=== PATIENT | female | born 1970 | race Caucasian/White ===

== ENCOUNTER 2018-01-14 18:24 | Inpatient (IN) | payer OTHER ==
[~2018-01-14] VITALS: Ht 172.7 cm; Wt 71.6 kg
[~2018-01-14 18:24] MED LIST: DIPHENHYDRAMINE50 MG PO; GABAPENTIN100 MG PO; HYDROCHLOROTHIA25 MG PO; IBUPROFEN600 MG PO; NEURONTIN400 MG PO; NORCO 5-325 TA1 EACH PO; ONE DAILY1 EAC1 PO; PENICILLIN V P500 MG PO; POTASSIUM CHLO20 ME1 PO; TRAMADOL HCL50 MG PO; TYLENOL325 MG PO; WELLBUTRIN XL150 MG PO; ZITHROMAX500 MG PO
[2018-01-14] MEDS ORDERED: IBUPROFEN200 MG PO (19:37)
[2018-01-14] MEDS ORDERED: PHARBETOL325 MG PO (19:38)
--- NOTE | 2018-01-15 00:36 | NUR ---
PT TO CCU AT 2205. AWAKE ALERT SITTIN UP ON STRETCHER. ABLE TO PIVOT FROM STRETCHER TO BED. HAS FREQ HARSH NONPRODUCTIVE COUGH. C/O R CHEST PAIN AND WAS GIVEN 5MG OXYCODONE. PAIN IMPROVED AND WAS ABLE TO SLEEP A LITTLE. TEMP NOW 100.9 AND GIVEN 500MG TYLENOL PO. TAKING PO WATER WELL. HAS NOT HAD BM FOR A WEEK, HAS NOT BEEN EATING WELL DUE TO ILLNESS. WILL LET MD KNOW IN AM.
--- NOTE | 2018-01-15 02:32 | NUR ---
SLEEPING OFF AND ON. WILL HAVE INC COUGH WHEN AWAKE. MEDS GIVEN.
--- NOTE | 2018-01-15 04:09 | NUR ---
PT UP TO BSC WITHOUT CALLING STAFF. REMINDED TO CALL. VOIDED CLEAR YEL URINE AND HAD BEEN UP BEFORE ON OWN WHEN STAFF WAS AWAY FROM DESK. IS NOW COUGHING, AND SOB. BREATH TONES DIM ON T 2/3 TO 3/4 UP, CRACKLE 1/2UP ON LT. FEELING SOB, HAD TO TAKE 02 OFF TO BLOW NOSE AND DESAT TO 84%. RT CALLED TO EVAL AND GIVE NEB. C/O R CHEST PAIN RETURNING, GIVEN 5MG OXYCODONE PO.
--- NOTE | 2018-01-15 06:30 | NUR ---
SLEEPING WELL AT THIS TIME.
--- NOTE | 2018-01-15 06:34 | NUR ---
ADDENDUM REMAINS TACHYPNEAC EVEN WHEN ASLEEP.
--- NOTE | 2018-01-15 06:58 | NUR ---
DR WONG GIVEN UPDATE ON RESP RATE. WILL DEC FLUIDS AND RT INFORMED THAT MAY TRY VAPOTHERM
--- NOTE | 2018-01-15 09:22 | NUR ---
ASSESSMENT COMPLETED, PT C/O OF RIGHT RIB DISCOMFORT THAT TRAVELS TO HER BACK. MEDICATED WITH OXYCODONE 5MG PO. PT DRINKING WATER WITHOUT PROBLEMS. VITAL SIGNS TAKEN WITH ORAL TEMP 101.6, DR. WONG NOTIFIED AND BLOOD CULTURES X2 SITES ORDERED. PT RESTING WITH HOB ELEVATED. R.T. IN AND VAPOTHERM IN PLACE AND ADJUSTED TO 35L AND 40% FI02. RESP 27 AND SATS 97%. PT EATING CLEAR LIQ DIET.
--- NOTE | 2018-01-15 10:30 | NUR ---
DR. WONG IN TO ASSESS PT. TEMP ORAL 102.8, MEDICATED WITH TYLENOL 500 MG PO. PT DRINKING WATER AND ATE 95% OF CLEAR LIQ BREAKFAST.
--- NOTE | 2018-01-15 11:45 | NUR ---
AT 1130 PATIENT WAS COMPLAINING OF FEELING TOO HOT. TEMPERATURE IN THE ROOM TURNED DOWN. ALSO, PATIENT HAS AN ORAL TEMPERATURE OF 98.9
--- NOTE | 2018-01-15 12:55 | NUR ---
PT FAMILY MEMBER BY, WAS WANTING TO CHECK ON PT. YASHIRA ROJO UPDATED HIM ON PT'S CONDITION, AND LET HIM KNOW THAT SHE HAS PNEU AND HAS TESTED POSITIVE FOR FLU B. BABY IN FAMILY, YASHIRA ROJO CAUTIONED TO BE VERY CAREFUL-USING FULL PRECAUTIONS. BRO DECIDED TO CALL INSTEAD. VISITED WITH HIM FOR A MOMENT, HE EXPRESSED CONCERN-THEIR MOTHER JUST LAST WEEK. WILL CONTINUE TO FOLLOW NEEDED
--- NOTE | 2018-01-15 13:03 | NUR ---
PT SLEEPING BUT AWAKENS TO VOICE, VITAL SIGNS TAKEN AND ASSESSMENT COMPLETED. PERSONNEL IN TO TALK TO PT ABOUT INSURANCE. PT UP TO BSC WITH ASSIST VOIDED 135 MLS YELLOW URINE, RETURNED TO BED WITH ASSIST. SAT DECREASED TO LOW 80'S WHEN UP, NOW 98% ON VAPOTHERM AT 35L AND 40% FI02. RESTING WITH HOB ELEVATED.
--- NOTE | 2018-01-15 14:24 | NUR ---
I/O'S COMPLETED. PT SLEEPING WITH HOB ELEVATED, SATS 98% ON VAPOTHERM 35L AND 40% FI02.
--- NOTE | 2018-01-15 16:14 | EKG ---
[facility] [address] [place], [place] [address] Signed Sinus tachycardia Possible Left atrial enlargement Incomplete right bundle branch block Borderline ECG No previous ECGs available Confirmed by TOMER WONG MD ([id number]) on 01/15/2018 4:14:33 PM Electronically Signed By: TOMER WONG MD 01/15/18 1614 PATIENT NAME: AUGUSTO AVILES Electrocardiogram DATE OF : 70 PHYSICIAN: TOMER WONG MD REPORT #: [id number] REPORT IS CONFIDENTIAL AND NOT TO BE RELEASED WITHOUT AUTHORIZATION
--- NOTE | 2018-01-15 16:44 | NUR ---
VITAL SIGN COMPLETED. TEMP 102.5 MEDICATED WITH TYLENOL 500 MG PO.
--- NOTE | 2018-01-15 18:01 | NUR ---
PT COUGHING AND MEDICATED WITH OXYCODONE 5MG PO.
--- NOTE | 2018-01-15 18:22 | NUR ---
PT COUGHING AND HAS A HIGH PITCHED WHEEZE. R.T. NOTIFIED AND HERE NOW TO GIVE SUHAIL PETERSON.
--- NOTE | 2018-01-15 18:52 | NUR ---
PT RESPONDED WELL TO DUO NEB. NOTIFIED AND ORDER RECEIVED FOR DUO NEB QID AND Q2 HRS PRN.
--- NOTE | 2018-01-15 19:30 | NUR ---
PT SHIFT REPORT RECEIVED FROM DAY SHIFT RN. PT IS RESTING IN BED AT THIS TIME. PT IS ON VAPOTHERM AT 35L AND 40% FIO2. PT IS TOLERATING THIS WELL AT THIS TIME. WILL CONTINUE TO CLOSELY MONITOR. PT CALLS APPROPRIATELY.
--- NOTE | 2018-01-15 20:45 | NUR ---
PT SHIFT ASSESSMENT COMPLETED. PT IS RESTING IN BED AT THIS TIME. THIS RN AND RT IN PT OOM TO DO NIGHTLY CARES. PT REQUESTING NEB TREATMENT. SHE STATES "I FEEL LIKE I CAN BREATH MUCH BETTER WHEN I GET THEM". PT BREATH SOUNDS ARE VERY DIMINISHED ON THE RIGHT SIDE. RT WORKED WITH PATIENT ON THE INSENTIVE SPIROMETER AND CORNET. PT STATES "I FEEL MUCH BETTERR THIS EVENING THE I DID THE PREVIOUS DAY". FRESH WATER AT THE BEDSIDE. PT DENIES ANY OTHER NEEDS AT THIS TIME. WILL CONTINUE TO CLOSELY MONITOR.
--- NOTE | 2018-01-15 23:15 | NUR ---
PT CALLED STATING PAIN WAS 8/10. GAVE PRN PAIN MEDICATION. PT UINATING WITH NO ISSUES.
--- NOTE | 2018-01-15 23:30 | NUR ---
PT SHIFT ASSESSMENT DONE. PT BREATH SOUNDS REMAIN DIMINISHED ON THE RIGHT SIDE. PT DENIES NEED FOR A NEB TREATMENT AT THIS TIME. WILL CONTINUE TO CLOSELY MONITOR.
--- NOTE | 2018-01-16 01:13 | NUR ---
PT RESTING IN BED. HEARD PT COUGHING. PT REQUESTING TYLENOL AND PSEUDAPHED TO HELP HEADACHE. PT DENIES NEEDING NEB AT THIS TIME. FRESH WATER A BEDSIDE. WILL CONTINUE TO CLSOELY MONITOR.
--- NOTE | 2018-01-16 01:26 | NUR ---
CALLED MD TO UPDATE PT CONTINUES TO HAVE ELEVATED TEMPS. NO NEW ORDERS AT THIS TIME. TYLENOL BRINGS TEMPERATURE DOWN TO 99.9. WILL CONTINUE WITH TYLENOL AT THIS TIME. IF TYLENOL DOES NOT IMPROVE TEMP CALL MD TO UPDATE.
--- NOTE | 2018-01-16 03:55 | NUR ---
PT CALLED TO ASK IF VAPOTHERM CAN BE REMOVED FOR A WHILE AND SHE CAN WEAR NASAL CANNULA INSTEAD. SHE WANTS A BREAK FROM THE HIGH PRESSURE. SPOKE WITH RT. UPDATED PATIENT IT IS RECOMMENED SHE WEAR THE VAPOTHERM, BUT IF SHE NEEDS A BREAK SHE CAN WEAR THE NASAL CANNULA FOR AWHILE. PT PLACED ON 4L NC. WILL CLOSELY MONITOR PT RR AND SPO2. PT DENIES WANTING A NEB TREATMENT AT THIS TIME. WILL CONTINUE TO CLOSELY MONITOR.
--- NOTE | 2018-01-16 05:18 | NUR ---
IN TO SEE PATIENT TO CHECK TEMPERATURE AND CHECK ON PATIENT AFTER BEING ON NASAL CANULA. PT IS TOELRATING NASAL CANNULA WELL AT THIS TIME. PT IS COUGHING A LOT AFTER AMBULATION. PT IS REQUESTING A NEB TO SEE IF THAT WILL HELP. CALLED RT. WILL CONTINUE TO CLOSELY MONITOR.
--- NOTE | 2018-01-16 08:24 | NUR ---
PT SITTING UP IN BED REQUESTS PAIN MEDICATION, STATES LEVEL OF PAIN IS A 8.5/10 WITH GOAL BEING 5/10. PT ON 4 L OXYGEN AT 100% ALTHOUGH MOVEMENT OF ANY KIND WILL DROP HER SATS LOW 81%. PAIN MEDICATION ADMINISTERED ORDERED. ORAL CARE SUPPLIES REQUESTED. C/O NONE AT THIS TIME. CALL LIGHT PLACED WITHIN REACH.
--- NOTE | 2018-01-16 09:14 | NUR ---
PT SITTING UP IN BED, CHEERFUL AND TALKATIVE TO THIS NURSE WHILE EATING BREAKFAST. RESPIRATORY THERAPIST PLACED PT ON 30L @ 45% WITH VASOTHERM. PT O2 @ 85% WHILE EATING WITH NO NOTICABLE DIFFICULTY. NO C/O AT THIS TIME. PT CALL LIGHT WITHIN REACH.
--- NOTE | 2018-01-16 10:31 | NUR ---
MED REC COMPLETE, PATIENT TAKES NO HOME MEDICATION BEDSIDES OVER THE COUNTER ACETAMINOPHEN OR IBUPROFEN FOR PAIN OR FEVER.
--- NOTE | 2018-01-16 10:43 | NUR ---
IN PT ROOM WITH PHYSCIAN DR. WONG, PT TEARFUL AND RESTLESS STATING SHE HAD A SUDDEN ONSET OF A HEADACHE. DR. WONG ASSESSED HER EMOTIONAL STATUS, PT STATES SHE IS FINE, JUST "SUDDENLY FEELING A HEACACHE AND HOT". TEMP TAKEN, 102.7, ADMINISTERED TYLENOL PER ORDERS. PT REQUESTS MORE ICE WATER. DR. WONG DECREASED VAPOTHERAM TO 30L @ 30%. NO C/O AT THIS TIME. CALL LIGHT WITHIN REACH.
--- NOTE | 2018-01-16 12:41 | NUR ---
PT AWAKE AND ALERT X4. SITTING UP IN BED WATCHING TV. PT REQUESTED LUNCH, GIVEN A MENUE AND EDUCATED ON HOW TO ORDER FOOD FOR HERSELF. IV SITES INTACT, NO REDNESS OR SWELLING NOTED, PT DENIES PAIN WITH FLUSH. PT DENIES NAUSEA, AND SOB. PT PAIN IS JOB AT THIS TIME.
--- NOTE | 2018-01-16 13:45 | NUR ---
CALLED TO UPDATE ON PT STATUS OF FEVER OF 102.0 AND LOW BP OF 100/54. ORDER GIVEN FOR ONE TIME DOSE 400 MG IBUPROFEN, RESTART IV FLUIDS, AND BLOOD CULTURES TO BE DRAWN.
--- NOTE | 2018-01-16 14:14 | NUR ---
LAB IN ROOM TO DRAW BLOOD CULTURES AT THIS TIME.
--- NOTE | 2018-01-16 14:44 | NUR ---
PT SITTING ON SIDE OF BED, O2 CANDULA IN PLACE. PT IS TRYING TO BLOW HER NOSE, AND A FEW TEARS RUN DOWN HER FACE. ON TOP OF BEING SO VERY SICK, SHE TALKS OF HOW SHE JUST LOST HER MOTHER LAST WEEK. DEBRIEFED, AND OFFERED PRAYER, PT DID ACCEPT. SHE THANKED ME FOR COMING, WILL CONTINUE TO FOLLOW NEEDED
--- NOTE | 2018-01-16 15:00 | NUR ---
PT RESTING IN BED, STATES "I'M HOT AND SWEATING" TURNED ROOM TEMP TO 70 DEGREES. PT ALERT AND ORIENTED X4. PT STATES SHE IS TIRED AND APPEARS FATIGUED. PT STATES SHE HAS DECIDED NOT TO TAKE A SHOWER TODAY DUE TO LACK OF ENERGY. IV SITES INTACT, FLUIDS/FLUSHES INFUSE EASILY, PT DENIES PAIN AT EITHER SITE. PT IS INDEPENDENT TO BEDSIDE COMMODE TO VOID WITHOUT DIFFICULTY. PT VOIDING QS AMOUNTS OF URINE, EMPTIED 1700ML YOLA COLORED URINE. GOOD PO INTAKE OF FLUIDS. PT DIAPHORETIC AT THIS TIME. NO COMPLAINTS OF NAUSEA, SOB, PAIN AT THIS TIME. CALL LIGHT WITHIN REACH.
--- NOTE | 2018-01-16 15:20 | NUR ---
PT OFF OF VAPOTHERM AND ONTO 4L NC O2 PER HER REQUEST.
--- NOTE | 2018-01-16 16:35 | NUR ---
PT RESTING IN BED, ASSISTED PT TO CHAIR. ASSISTED PT WITH PARTIAL BATH. LINEN CHANGE, GOWN CHANGE. ASSESSMENT COMPLETED, BP: 100/57, HR: 85, O2: 91 RA, PATIENT THEN PLACED BACK ON NASAL CANNUAL 4L. RR:20, TEMP: 99.2. PT STILL ALERT AND ORIENTED. STATES "I FEEL BETTER, THANKS FOR GETTING ME UP OUT OF BED." DENIES C/O AT THIS TIME. CALL LIGHT WITHIN REACH.
--- NOTE | 2018-01-16 17:10 | NUR ---
FRIEND IN AT THE BEDSIDE TO KANDY WANG.
--- NOTE | 2018-01-16 18:22 | NUR ---
PT BACK IN BED, FRIEND SITTING NEXT TO HER VISITING. ATE 80% OF HER DINNER. DENIES C/O NAUSEA AND SOB. DENIES ANY NEEDS AT THIS TIME.
--- NOTE | 2018-01-16 18:48 | NUR ---
PT HAD UNEVENTFUL SHIFT. PO OXYCODONE GIVEN X3 FOR PAIN IN CHEST WITH BREATHING. PT HAD FEVERS AROUND NOON, GIVEN PO TYLENOL THEN PO MOTRIN. BLOOD CULTURES DRAWN PER . PT ALERT AND ORIENTED X4 ALL SHIFT. PT DENIES NAUSEA ALL SHIFT. PT REQUIRES O2 VIA NASAL CANULA OR VAPOTHERM. PT REFUSED SHOWER TODAY, GIVEN PARTIAL BATH WITH WARM SOAPY WASHCLOTHS, LINENS AND GOWN CHANGED. PT JOB PO INTAKE OF FOOD AND FLUIDS WELL. URINE OUTPUT IS GREATER THAN QS. PT COOPERATIVE.
--- NOTE | 2018-01-16 19:10 | NUR ---
CALLED TO UPDATE ON PT STATUS OF BP 90'S/60'S. PT PRODUCING GREATER THAN QS URINE AT THIS TIME. NO FURTHER ORDERS, CONTINUE TO MONITOR.
--- NOTE | 2018-01-16 20:00 | NUR ---
SHIFT REPORT RECEIVED FROM YASHIRA FERNÁNDEZ. ASSESSMENT COMPLETED. PT IS ALERT/ORIENTED, STATES THAT PAIN HAS IMPROVED TO 5/10 SINCE LAST DOSE OF OXYCODONE, STATES PAIN IS TOLERABLE. LUNGS HAVE CRACKLES IN RIGHT UPPER AND LEFT LOWER LOBES, R.T. IN TO GIVE BREATHING TREATMENT AND PERFORM CPT. PT STATES SHE DOES FEEL SLIGHLY SOB, 4L O2 VIA NC IN PLACE, SPO2:99%. HR REGULAR. BOWEL TONES ACTIVE, DENIES NAUSEA. SKIN GROSSLY INTACT. IV IN LEFT HAND STARTED TO FEEL PAINFUL, DID NOT FLUSH EASILY, D/C'D WITH CATHETER TIP INTACT, PT TOLERATED WELL. 20G IV STARTED IN RIGHT FOREARM/WRIST AREA, IVF INFUSING WNL. PT HAS BEEN GETTING UP TO BSC INDEPENDENTLY TO VOID, 250ML EMPTIED. PT DENIES FURTHER REQUESTS AT THIS TIME, WILL CONTINUE TO MONITOR.
--- NOTE | 2018-01-16 21:53 | NUR ---
PT CALLED AND REQUESTED TO BE PLACED BACK ON VAPOTHERM. R.T. CALLED AND PLACED ON 12L AT 30%. PT ALSO REPORTS 04/22 HEADACHE AND PLEURITIC PAIN, PRN TYLENOL AND PSEUDOEPHEDRINE GIVEN. FRESH ICE WATER PROVIDED. PT DENIES FURTHER REQUESTS AT THIS TIME.
--- NOTE | 2018-01-16 22:38 | NUR ---
PT COMPLAINING OF 8/10 PAIN IN SIDE AND FOUND TO HAVE TEMP OF 100.6, PRN MOTRIN ADMINISTERED AND COOL WASH CLOTH PROVIDED. PT'S SATS WERE STAYING AT 87-89% SO I INCREASED VAPOTHERM TO 15L, SATS NOW 90-91%, WILL CONTINUE TO MONITOR.
--- NOTE | 2018-01-16 22:58 | NUR ---
PT'S SPO2 REMAINS AT 88%, INCREASED TO 18L BUT SATS DID NO CHANGE. INCREASED TO 20L, SPO2:90%. WILL CONTINUE TO MONITOR.
--- NOTE | 2018-01-17 00:04 | NUR ---
ASSESSMENT COMPLETED. RE-CHECKED TEMP: 99.0 ORALLY. REPORTS 8/10 PAIN IN RIGHT RIBS, PRN OXYCODONE ADMINISTERED. LUNGS COARSE TRHOUGHOUT, VAPOTHERM REMAINS AT 20L/30%, SPO2:91%. HR REGULAR. DENIES NAUSEA. IVF INFUSING WNL. PT DENIES FURTHER REQUESTS AT THIS TIME. WILL CONTINUE TO MONITOR.
--- NOTE | 2018-01-17 00:45 | NUR ---
VAPOTHERM SETTINGS ADJUSTED TO 25L @40%, SPO2 WAS 85-88%. SATURATIONS NOW IN MID 95-98%. WILL CONTINUE TO MONITOR.
--- NOTE | 2018-01-17 02:09 | NUR ---
CHECKED IN ON PT WHO APPEARS TO BE SLEEPING. RR:20 SPO2:99%, VAPOTHERM SETTINGS UNCHANGED AT 25L @40%, RESPIRATIONS EVEN AND UNLABORED. WILL ALLOW FOR REST AND CONTINUE TO MONITOR.
--- NOTE | 2018-01-17 03:03 | NUR ---
IN TO START VANCO INFUSION, PT SLEEPING, NO APPARENT DISTRESS. RESPIRATIONS EVEN AND UNLABORED, RR:20, SPO2:95%, VAPOTHERM SETTINGS UNCHANGED. WILL ALLOW FOR REST AND CONTINUE TO MONITOR.
--- NOTE | 2018-01-17 03:59 | NUR ---
ASSESSMENT COMPLETED, PT RESTING WITH EYES CLOSED, WOKE WHILE I WAS IN ROOM. DENIES PAIN AND NAUSEA. LUNGS REMAINS COARSE WITH SOME CRACKLES NOTED, VAPOTHEM SETTINGS UNCHANGED AT 25L @ 40%. HR REGULAR. PT CONTINUES TO GET UP TO BSC INDEPENDENTLY, 450ML URINE EMPTIED. IVF INFUSING WNL. PT DENIES REQUESTS AT THIS TIME, WILL CONTINUE TO MONITOR.
--- NOTE | 2018-01-17 05:48 | NUR ---
CHECKED IN ON PT WHO HAD JUST FINISHED USING BSC. PT REPORTS 8/10 PLEURITIC PAIN, 5MG PO OXYCODONE GIVEN. PT DENIES FURTHER REQUESTS, WILL CONTINUE TO MONITOR.
--- NOTE | 2018-01-17 06:27 | NUR ---
PT CALLED AND REQUESTED A BREAK FROM THE VAPOTHERM, PLACED HE BACK ON 4L VIA NC. SPOS:94%. PT ALSO REQUESTED BREATHING TREATMENT, R.T. CALLED.
--- NOTE | 2018-01-17 06:28 | NUR ---
PT CALLED AND REQUESTED A BREAK FROM THE VAPOTHERM, PLACED HER BACK ON 4L VIA NC. SPO2:94%. PT ALSO REQUESTED BREATHING TREATMENT, R.T. CALLED AND IS IN ROOM AT THIS TIME. PT DENIES FURTHER REQUESTS.
--- NOTE | 2018-01-17 07:45 | NUR ---
PT ALERT AND ORIENTED X4. SITTING UP IN BED EATING BREAKFAST, ANSWERING QUESTIONS WITH EASE. VITAL SIGNS WNL AT THIS TIME. PT STATES SHE SLEPT WELL DURING THE NIGHT. PT IS COUGHING OCCASSIONALY BUT DENIES SOB, NAUSEA, AND DISCOMFORT AT THIS TIME. IV SITES INTACT, FLUIDS INFUSING EASILY, PATIENT DENIES PAIN WITH FLUID INFUSION. PT DENIES ANY NEEDS AT THIS TIME. CALL LIGHT IS WITHIN REACH.
--- NOTE | 2018-01-17 10:04 | NUR ---
PT BREATHING SHALLOW AND TACHYPNEIC. STATES SHE IS IN PAIN. TEMPERATURE @ 100.6. ADMINISTERED OXYCODONE AND TYLENOL PER ORDERS. WILL CONTINUE TO MONITOR CLOSELY.
--- NOTE | 2018-01-17 10:39 | NUR ---
CHECKED IN ON PT. PT SITTING UP IN BED, BREATHING HAS SLOWED DOWN. RR NOW BETWEEN 26-30. PT STATES, "I THINK THE MEDICINE IS JUST NOW STARTING TO KICK IN". DENIES NEEDS AT THIS TIME. WILL CONTINUE TO MONITOR CLOSELY. CALL LIGHT WITHIN REACH.
--- NOTE | 2018-01-17 11:16 | NUR ---
PT SOB, COUGHING & CRYING, STATING "i HURT ALL OVER AND IM TRYING TO BREATH". BREATHING IS TACHYPNEIC AND SHALLOW. O2 SAT @ 82%, INCREASED OXYGEN TO 5L. TEMP INCREASE 100.3 RT CALLED, AND BEGAN NEB TREATMENT.
--- NOTE | 2018-01-17 11:31 | NUR ---
PT REQUESTED NO VISITS AT THIS TIME. WILL CHECK BACK AGAIN-GOD BLESS
--- NOTE | 2018-01-17 13:30 | NUR ---
PT ALERT AND ORIENTED X4. PT AMBULATED TO BATHROOM FOR SHOWER WITH STANDBY ASSIST ON 3L O2. PT AMBULATED BACK TO ROOM WITH STANDBY ASSIST ON 3L O2. PT STATES "I FEEL SO MUCH BETTER NOW". PT TO CHAIR O2 ON 4L SPO2 @ 92%, ALL VITALS WNL. IV SITES INTACT, BOTH SITES FLUSHED EASILY WITH 10ML NS, PT DENIES ANY PAIN. FLUIDS RESTARTED IN RA. PT APPEAR IN HIGH SPIRITS, EATING LUNCH. DENIES SOB, PAIN, NAUSEA, AND DISCOMFORT AT THIS TIME. CALL LIGHT IS PLACED WITHIN REACH.
--- NOTE | 2018-01-17 15:15 | NUR ---
PT SISTER AURORA CALLED, TRANSFERED CALL INTO PT ROOM. PT HAD SHORT CONVERSATION WITH SISTER THEN HUNG UP PHONE. AURORA CALLED BACK, REQUESTING TO SPEAK WITH PT'S NURSE. THIS NURSE ASKED PT IF SHE WANTED HER SISTER AURORA TO KNOW HER INFORMATION, PT STATES "SHE'S DRUNK, I DON'T WANT TO TALK TO HER, DON'T TELL HER ANYTHING". AURORA ON PHONE SLURRING WORDS, INSISTANT ON INFORMING THIS NURSE "YOU NEED TO KNOW HER HISTORY". QUICKLY AND POLITELY ENDED CONVERSATION WITH AURORA PT HAS NOT GIVEN CONSENT.
--- NOTE | 2018-01-17 15:35 | NUR ---
PT AWAKE AND ALERT X4, SITTING UP IN BED WATCHING TV. PT ABLE TO JOB 100% OF LUNCH. PT C/O 8/10 RIB PAIN, GIVEN 7.5 MG PO OXYCODONE. PT DENIES NAUSEA AND SOB AT THIS TIME. O2 VIA NASAL CANULA TITRATED DOWN TO 3L FROM 4L, PT O2 SATS ARE 98% AT THIS TIME. VITALS WNL AT THIS TIME.
--- NOTE | 2018-01-17 17:58 | NUR ---
ALL PT ASSESSMENTS REVIEWED BY THIS RN. WORKING WITH STUDENT NURSE GENNARO.
--- NOTE | 2018-01-17 18:11 | NUR ---
PT REQUESTED WATER, PO INTAKE HAS BEEN GOOD. PT GIVEN MORE WATER. PT DENIES NAUSEA, SOB AND PAIN AT THIS TIME. PT SITTING UP IN BED ALERT AND ORIENTED X4, STATES "I FEEL BETTER". PT VITALS WNL AT THIS TIME. PT ON 3L VIA NC.
--- NOTE | 2018-01-17 19:41 | NUR ---
SHIFT REPORT RECEIVED FROM PRADEEP AC AND GENNARO DAS. PT IS CURRENTLY SLEEPING, NO APPARENT DISTRESS. RR:27, SPO2: 97%, 3L O2 VIA NC IN PLACE. IVF INFUSING WNL. WILL ALLOW FOR REST AND CONTINUE TO MONITOR.
--- NOTE | 2018-01-17 20:27 | NUR ---
ASSESSMENT COMPLETED. PT IS ALERT/ORIENTED, REPORTS 7/10 PAIN IN RIBS, 7.5MG PO OXYCODONE ADMINISTERED. LUNGS SOUND DIM AND CLEAR, 3L O2 VIA NC IN PLACE. HR REGULAR. PT AT 75% OF DINNER, TOLERATED WELL, DENIES NAUSEA. SKIN INTACT. IV PATENT, IVF INFUSING WNL. BSC EMPTIED OF 350ML OF YOLA COLORED URINE. PT DENIES FURTHER REQUESTS AT THIS TIME, WILL CONTINUE TO MONITOR.
--- NOTE | 2018-01-17 21:20 | NUR ---
CHECKED IN ON PT WHO HAD [place] [facility] [place] EMPTI[place]. FRESH ICE WATER PROVIDED. NEW IV TUBING PLACED. PT'S TEMP: 98.4 ORALLY. PT STATES SHE IS GOING TO TRY TO SLEEP NOW, WILL CONTINUE TO MONITOR.
--- NOTE | 2018-01-17 21:47 | NUR ---
TITRATED OXYGEN TO 4L FROM 3L, SPO2 WAS STAYING AT 89-90%, WILL CONTINUE TO MONITOR.
--- NOTE | 2018-01-17 22:58 | NUR ---
PT'S TEMP STARTING TO INCREASE, WAS 99.7 ORALLY, AND PT RATES RIB PAIN 5/10, PRN MOTRIN GIVEN AT THIS TIME. VANCO INFUSION STARTED. PT GIVEN PSEUDOEPHEDRINE PER REQUEST. FRESH ICE WATER PROVIDED. PT DENIES FURTHER REQUESTS AT THIS TIME.
--- NOTE | 2018-01-17 23:59 | NUR ---
ASSESSMENT COMPLETED. PT RESTING, WOKE EASILY WHEN I ENTERED ROOM. NO COMPLAINTS OF PAIN OR NAUSEA AT THIS TIME. LUNGS COARSE, RUB NOTED IN UPPER LOBES, 4L O2 VIA NC IN PLACE. NO OTHER CHANGES FROM PREVIOUS ASSESSMENT. RECHECKED TEMP: 99.2 ORALLY. CALL LIGHT IS WITHIN REACH, NO FURTHER REQUESTS AT THIS TIME.
--- NOTE | 2018-01-18 01:47 | NUR ---
PT CALLED AND REQUESTED PAIN MEDICATION FOR 04/22 RIB PAIN, 7.5MG PO OXYCODONE ADMINISTERED. PT ALSO REQUESTS A BREATHING TREATMENT, R.T. CALLED AND IS IN ROOM AT THIS TIME. PT DENIES FURTHER REQUESTS, WILL CONTINUE TO MONITOR.
--- NOTE | 2018-01-18 03:13 | NUR ---
CHECKED IN ON PT WHO IS SLEEPING, NO APPARENT DISTRESS. RR:18, SPO2:96%, 4L O2 VIA NC REMAINS IN PLACE. WILL ALLOW FOR REST AND CONTINUE TO MONITOR.
--- NOTE | 2018-01-18 04:21 | NUR ---
ASSESSMENT COMPLETED. PT WATCHING TV IN BED, REPORTS 7/10 PAIN IN RIBS, PRN TYLENOL GIVEN, WILL ADMINISTER OXYCODONE WHEN IT IS TIME. LUNGS SOUND DIM, VERY LITTLE AIR MOVEMENT IN RIGHT LOWER LOBE, BILATERAL UPPER LOBES HAVE EXPIRATORY WHEEZES AND SOUND COARSE, 4L O2 VIA NC REMAINS IN PLACE. NO OTHER CHANGES FROM PREVIOUS ASSESSMENT. PT DENIES FURTHER REQUESTS AT THIS TIME.
--- NOTE | 2018-01-18 05:56 | NUR ---
WENT IN TO CHECK ON PT AND REASSESS PAIN, BUT PT IS ASLEEP AT THIS TIME, DOES NOT APPEAR TO BE IN ANY DISTRESS. RR:25, SPO2: 97% ON 4L. WILL ALLOW FOR REST AND CONINUE TO MONITOR.
--- NOTE | 2018-01-18 06:25 | NUR ---
PT CALLED AND REQUESTED PAIN MEDICATION FOR 8/10 RIB PAIN, 7.5MG PO OXYCODONE GIVEN. PT ALSO REQUESTED BREATHING TREATMENT, R.T. CALLED AND IS IN ROOM AT THIS TIME. FRESH ICE WATER PROVIDED AND BSC EMPTIED OF 350ML YELLOW URINE. PT DENIES FURTHER REQUESTS AT THIS TIME.
--- NOTE | 2018-01-18 08:00 | NUR ---
PT AWAKE AND ORIENTED X4, SITTING UP IN BED TALKING, DENIES PAIN, NAUSEA, AND SOB AT THIS TIME. PT STATES "I FEEL SO MUCH BETTER TODAY". PT VITALS WNL AT THIS TIME. PT REPORTS SHE HAS ALREADY ORDERED BREAKFAST. IV SITES INTACT, NO REDNESS OR SWELLING NOTED, FLUIDS INFUSING EASILY.
--- NOTE | 2018-01-18 09:45 | NUR ---
PT REQUESTS NEB TREATMENT, RESP THERAPY CALLED. PT O2 SATS ARE 94% ON 3L NC. PT STATES "I FEEL SO COLD". TEMPORAL TEMP IS 99.1, 4OO MG PO MOTRIN GIVEN. PT ALSO C/0 8/10 PAIN IN RIBS, 7.5 MG PO OXYCODONE GIVEN.
--- NOTE | 2018-01-18 10:28 | NUR ---
PT REPORTS RELIFE FROM NEB TREATMENT AND PAIN MEDICATION.
--- NOTE | 2018-01-18 11:40 | NUR ---
FULL REPORT CALLED TO YASHIRA SCHMIDT ON MED/SURG. PT BEING TRANSFERED TO ROOM 122.
--- NOTE | 2018-01-18 11:41 | NUR ---
REPORT RECEIVED VIA TELEPHONE FROM PRADEEP AC IN CCU. WILL BE EXPECTING PATIENT TO ARRIVE TO ROOM 122 IN RECLINER CHAIR. VISITORS IN ROOM AT THIS TIME.
--- NOTE | 2018-01-18 12:05 | NUR ---
PT TRANSFERED TO ROOM 122, ALL PERSONAL BELONGINGS WENT WITH PT. PT ALERT AND ORIENTED X4, DENIES PAIN, NAUSEA, AND SOB.
--- NOTE | 2018-01-18 12:06 | NUR ---
pt in room 122 now. patient attached to continuous pulse ox. 2l [address] saturating 92%. blowing nose d/t congestion. vanco infusing into lfa iv. call light within reach. patient has had lunch. no needs at this time.
--- NOTE | 2018-01-18 14:34 | NUR ---
PT IS SITTING UP IN BED TALKING ON THE PHONE. PT DOES NOT NEED ANYTHING AT THE MOMENT
--- NOTE | 2018-01-18 17:44 | NUR ---
INFLUENZA B +-- DROPLET PERCAUTIONS. CHEST PAIN D/T COUGHING. OXYCODONE GIVEN. FEBRILE. MOTRIN AND TYLENOL GIVEN. SALINE LOCKED BETWEEN ABX. VANCO INFUSING. DAILY VANCO TROUGH 1030. INDEPENDENT IN ROOM. SOB WITH ACTIVITY. DESATS. CONTINUOUS PULSE OX. 3L 02 VIA NC. ROCEPHIN DAILY. TAMIFLU DAY 6 8. REGULAR DIET.
--- NOTE | 2018-01-18 18:00 | NUR ---
PT IS SITTING UP IN BED WITH CALL LIGHT IN REACH. PT ASKED FOR TRAY TO BE TRHOWN AWAY.
--- NOTE | 2018-01-18 19:19 | NUR ---
IN ROOM FOR REPORT, PT IS AWAKE IN BED AND HAS VISITOR IN THE ROOM. SHE DENIES NEEDS AT THIS TIME. CALL LIGHT IS WITHIN REACH.
--- NOTE | 2018-01-18 22:03 | NUR ---
PT REPORTS PAIN AT 8/10 IN RIBS. OXYCODONE AND TYLENOL GIVEN, PT DENIES FURTHER NEEDS AT THIS TIME. CALL LIGHT IS WITHIN REACH.
--- NOTE | 2018-01-18 23:02 | NUR ---
PT IS RESTING, IN ROOM TO GIVE IV ABX. PT DENIES NEEDS AT THIS TIME. CALL LIGHT IS WITHIN REACH.
--- NOTE | 2018-01-19 00:47 | NUR ---
PATIENT REPORTS WAKING UP SUDDENLY AND FEELING NAUSEOUS, PRN ZOFRAN GIVEN. O2 SATURATION IS 92% ON 3L O2 VIA NC, RR IS 24 AFTER COUGHING. PATIENT DENIES FURTHER NEEDS. ASSESSMENT DONE. CALL LIGHT WITHIN REACH.
--- NOTE | 2018-01-19 02:16 | NUR ---
VITALS AND I&OS DONE AND CHARTED. FRESH ICE WATER GIVEN. BEDSIDE TABLE AND CALL LIGHT WITHIN REACH.
--- NOTE | 2018-01-19 02:36 | NUR ---
PATIENT RESTING COMFORTABLY IN BED, BREATHING IS EVEN AND UNLABORED. O2 SATURATION IS 92% ON 3L O2 VIA NC. DENIES NEEDS AT THIS TIME. CALL LIGHT WITHIN REACH.
--- NOTE | 2018-01-19 03:45 | NUR ---
PATIENT RESTING IN BED, BREATHING IS EVEN AND UNLABORED. DENIES PAIN AT THIS TIME. DENIES NEEDS. CALL LIGHT WITHIN REACH.
--- NOTE | 2018-01-19 05:38 | NUR ---
PATIENT RESTING IN BED, REPORTS 8/10 HEADACHE AND RIB PAIN, PRN TYLENOL AND OXYCODONE GIVEN PER EMAR. PATIENT DENIES FURTHER NEEDS. CALL LIGHT WITHIN REACH.
--- NOTE | 2018-01-19 05:59 | NUR ---
PATIENT'S NIGHT WAS UNEVENTFUL. SHE HAS BEEN RESTING OFF AND ON THROUGHOUT SHIFT. LUNGS CONTINUE TO BE COARSE WIHT OCCASIONAL EXPIRATORY WHEEZE. REMAINS ON 3L O2. BECOMES SOB WITH ACTIVITY, TO BEDSIDE COMODE. PAIN HAS BEEN WELL CONTROLLED WITH PRN TYLENOL AND OXYCODONE. IV IS SALINE LOCKED, SBA. NO ACUTE CHANGES.
--- NOTE | 2018-01-19 07:38 | NUR ---
REPORT RECEIVED FROM ROSITA RN OUTSIDE PATIENT ROOM TO ALLOW SLEEP. CHECKED IVF PUMP FOR CORRECT PROGRAMMING. PT COUGHING OCCASIONALLY. VANCO INFUSING. DROPLET ISOLATION PERCAUTIONS IN PLACE. 3L 02 VIA NC ON. SENNA ADDED TO MEDICATION REGIMEN SHE HAS NOT HAD BM IN SEVERAL DAYS.
--- NOTE | 2018-01-19 08:17 | NUR ---
PT SITTING UP IN BED. COFFEE BREWED AND BROUGHT TO PATIENT PER REQUEST. NOT HUNGRY FOR BREAKFAST. C/O NOT BEING ABLE TO BREATH. RESP THERAPIST CALLED. BREATHING TREATMENT IN PROGRESS AT THIS TIME. VANCO SOON TO BE FINISHED. MIRALAX, SENNA, TAMIFLU, AND SUDAFED GIVEN THIS MORNING.
--- NOTE | 2018-01-19 10:44 | NUR ---
PATIENT MORE COMFORTABLE AFTER PAIN MEDS GIVEN AT 0930. O2 MONITOR PROBE APPLIED TO FOREHEAD INSTEAD OF FINGER FOR MORE ACCURATE READING. 94% ON 3L NOW.
--- NOTE | 2018-01-19 10:47 | NUR ---
VS AND I&O'S TAKEN AND DOCUMENTED. PT HAS NO NEEDS AT THIS TIME. INFORMED PT TO CALL IF SHE THINKS OF ANYTHING SHE NEEDS. FRESH ICE WATER GIVEN AND CALL LIGHT IS IN REACH.
--- NOTE | 2018-01-19 15:47 | NUR ---
pt rested for several hours this afternoon. oxycodone/tylenol eased rib pain. patient has 99.8 oral temp now. will continue to monitor. patient has no chills at this time.
--- NOTE | 2018-01-19 18:23 | NUR ---
PATIENT SPIKED 100.4 TEMP THIS EVENING. OXYCODONE/TYLENOL GIVEN X2. MOTRIN X1. SUDAFED X1. VANCO CHANGED TO AUGMENTIN PO. SALINE LOCKED LEFT WRIST. SENNA ADDED TO BOWEL REGIMEN. NO BM SINCE 01/15. INDEPENDENT IN ROOM. DESATS WITH ACTIVITY. CHEST XRAY TODAY-- NO IMPROVEMENT. DROPLET ISOLATION FOR INFLUENZA B +. 3L O2 VIA NC IN PLACE.
--- NOTE | 2018-01-19 19:10 | NUR ---
RECEIVED REPORT ON PT. SHE REQUESTED NOT TO BE WOKEN UP. WILL CHECK IN WITH HER SOON.
--- NOTE | 2018-01-19 20:30 | NUR ---
HANDOFF REPORT RECEIVED FROM YASHIRA PAIGE, ASSUMED CARE OF PT.
--- NOTE | 2018-01-19 21:40 | NUR ---
IN PT ROOM, ASSESSMENT COMPLETE, RT IN PT ROOM AT THIS TIME FOR NEB TX, IS AND CPT EDUCATION. LUNGS DIMINISHED THROUGHOUT, CRACKLES AUSCULTATED RIGHT LOWER LOBE, COARSE IN LLL. PT REPORTS SOME NUMBNESS AND TINGLING BILATERALLY IN HANDS. BOWEL TONES ACTIVE X 4. PT IS AFEBRILE. DENIES NAUSEA. BSC EMPTIED, PT GIVEN APPLE JUICE, JELLO, ICE WATER. IV SALINE LOCKED WNL. PT 93% ON 3L OXYGEN BY NC. CALL LIGHT IN REACH, LIGHTS OFF IN ROOM, DOOR SHUT PER PT REQUEST.
--- NOTE | 2018-01-19 23:53 | NUR ---
CHECKED ON PT, PT LYING ON SIDE, LIGHTS OFF IN ROOM, APPEARS TO BE SLEEPING, SPO2 92% ON 3L OXYGEN.
--- NOTE | 2018-01-20 00:46 | NUR ---
CALL LIGHT ANSWERED, PT C/O 06/23 RIB PAIN. PRN TYLENOL AND PRN OXYCODONE ADMINISTERED AT THIS TIME. PT GIVEN ICE WATER REQUESTED. PT AWAKE, WATCHING TV. BSC EMPTIED 350 ML VOID. NO ADDL REQUESTS. CALL LIGHT IN REACH, PT 93% ON 3L OXYGEN BY NC.
--- NOTE | 2018-01-20 03:02 | NUR ---
CALL LIGHT ANSWERED, PT REQUESTING PRN NEB TX. RT NEREYDA IN PT ROOM. ASSESSMENT COMPLETE AT THIS TIME. LUNGS DIMINISHED IN RIGHT UPPER AND LOWER LOBES, CLEAR IN LEFT UPPER LOBE, CRACKLES HEARD IN LLL. PT C/O / RIB PAIN, STATES "ITS OKAY, I CAN DEAL WITH THAT". BOWEL TONES ACTIVE X 4. BSC EMPTIED, PT HAD BM. PT GIVEN DECAF TEA AND ICE WATER REQUESTED. CALL LIGHT IN REACH, SPO2 93-95% ON 3L OXYGEN BY NC.
--- NOTE | 2018-01-20 05:32 | NUR ---
PT ON 3L OXYGEN THROUGHOUT SHIFT SATURATING BETWEEN 93-95%. PRN NEBULIZER X 1 ADMINISTERED REQUESTED. LUNGS DIMINISHED IN RIGHT LOBES, COARSE IN LOWER LEFT LOBE. PT USING BSC INDEPENDENTLY FOR QUANTITY SUFFICIENT OUTPUT, BM THIS SHIFT. CONTINUOUS PULSE OX IN PLACE. PT CALLING APPROPRIATELY. CONTINUES ON DROPLET PRECAUTIONS.
--- NOTE | 2018-01-20 05:39 | NUR ---
CHECKED ON PT, PT SLEEPING AT THIS TIME, BREATHING NON-LABORED, SPO2 95% ON 3L OXYGEN BY NC.
--- NOTE | 2018-01-20 05:59 | NUR ---
PRN OXYCODONE 7.5 MG ADMINISTERED FOR 8/ PT REPORTED RIB PAIN W COUGHING, BREATHING. PRN MOTRIN ADMINISTERED FOR LOW GRADE FEVER 99.3. PT LYING IN BED, HOB ELEVATED ON 3L OXYGEN BY NC, SPO2 95%. PT GIVEN CHAPSTICK, CRACKERS, ICE WATER REQUESTED. CALL LIGHT IN REACH.
--- NOTE | 2018-01-20 07:48 | NUR ---
MORNING ABX DUE. THIS RN TO ROOM TO GIVEN MEDICATION. PT CHEERFUL AND TALKING WITH THIS RN. PT REPORTS 6/10 PAIN THAT IS "OK FOR NOW." PT WAITING FOR BREAKFAST. ASSESSMENT DONE. MEDICATION GIVEN. PT STATE SHE HAS NO ADDITIONAL REQUESTS OR COMPLAINTS AT THIS TIME. CALL [facility] WITHIN REACH.
--- NOTE | 2018-01-20 08:28 | NUR ---
PATIENT SITTING UP IN BED. PATIENT COMPLAINED ABOUT HER BREAKFAST BEING COLD EVERY AM. THIS NANOTECHNOLOGY TECHNICIAN APPOLOGIZED AND ORDERED A NEW TRAY. PATIENT WOULD LIKE TO SHOWER AFTER BREAKFAST. FRESH ICE WATER GIVEN. CALL BUTTON IN REACH. PATIENT SEEMS HAPPY NOW. NEW BREAKFAST TRAY SERVED WARM. NO OTHER NEEDS AT THIS TIME.
--- NOTE | 2018-01-20 09:59 | NUR ---
THIS RN TO BEDSIDE. PT REPORTING 8/ PAIN. SEE MAR FOR MEDICATION GIVEN. PT DECLINES MEDICATION FOR CONSTIAPTION (SEE MAR), STATING "I JUST HAD A BOWEL MOVEMENT AND IT WAS A LITTLE LOOSE." PT WATCHING TV ON PHONE AND STATES "I'M JUST GOING TO TAKE A NAP RIGHT NOW. BED RAILS UP. CALL LIGHT WITH IN REACH. O2 IN PLACE AT 3L NC, O2 SAT AT 93%.
--- NOTE | 2018-01-20 12:05 | NUR ---
FOCUSED ASSESSMENT DUE. PT REPORTING 05/23 PAIN. SEE MAR FOR MEDICATION GIVEN. CHAPLAN AT BEDSIDE. MILKSHAKE DELIVERED FROM FAMILY. ASSESSMENT DONE. PT DRINKING MILKSHAKE, DOES NOT WANT ADDITIONAL LUNCH AT THIS TIME. CALL LIGHT WITHIN REACH. PT STATES SHE HAS NO ADDITIONAL REQUESTS OR COMPLAINTS. BED RAILS UP. PULSE OXIMITER ON, O2 NC AT 3L ON.
--- NOTE | 2018-01-20 12:54 | NUR ---
PT SITTING IN BED, MORE ALERT AND ORIENTED TODAY. PT EXPRESS A LITTLE DISMAY THAT THE PNEUMONIA HAS HUNG ON. WE DISCUSSED THIS AND DEBRIEFED ON A NUMBER OF OTHER ISSUES THAT HAVE HAPPENED IN HER LIFE. PT REQUESTED PRAYER, WILL BE AVAILABLE NEEDED
--- NOTE | 2018-01-20 13:20 | NUR ---
CT HERE FOR PT. PIV NOT FLUSHING, APPEARS INFLAMED AND INFLITRATED. PIV DC'D PER PROTOCOL. NEW PIV PLACED PER PROTOCOL IN RIGHT FA. BLOOD RETURN NOTED WITH IV START. PT TAKEND TO CT BY WHEELCHAIR BY CT TECHNITIAN. NO REQUESTS OR COMPLAINTS.
--- NOTE | 2018-01-20 14:36 | NUR ---
PT RETURNED FROM CT. PT REQUESTS PAIN MEDICATION FOR 05/23 PAIN. PAIN MEDICATION AND ABX GIVEN (SEE MAR). PT STATES NO ADDITIONAL REQUESTS OR COMPLALINTS AT THIS TIME. BED RAILS UP. CALL LIGHT WITHIN REACH.
--- NOTE | 2018-01-20 14:45 | NUR ---
PATIENT IS SITTING UP IN BED. RN IN ROOM. THIS MARKET DIRECTOR ASKED PATIENT ABOUT A SHOWER. PATIENT STATES THAT SHE IS TOO TIRED RIGHT NOW AND WANTS TO SHOWER TOMORROW. CALL LIGHT WITHIN REACH. NO OTHER NEEDS AT THIS TIME.
--- NOTE | 2018-01-20 16:06 | NUR ---
PUMP ALARMING, INFUSION AND FLUSH COMPLETE. PIV FLUSHED, SALINE LOCKED, AND ALCOHOL CAP APPLIED. ASSESSMENT DONE. CRACKELS NOTED IN LUNGS, CLEAR WELL WITH COUGHING. PT WATCHING TV. REPORTS IMPROVED PAIN, NOW AT 5/10. PT WATCHING TV. NO REQUESTS OR COMPLAINTS AT THIS TIME. CALL LIGHT WITHIN REACH. BED RAILS UP.
--- NOTE | 2018-01-20 16:54 | NUR ---
PT HERE FOR SEPSIS, PNEUMONIA R/T INFLUENZA B. STAND BY ASSIST. REGULAR DIET. LAST BM TODAY. PIV IN RFA, SL. PT REPORTS ONGOING 6-05/23 PAIN. Q4 OXYCODONE, Q6 MOTRIN. CT SCAN TODAY, WITH CONTRAST. O2 3L NC. IMPROVED APPITITE TODAY. USES CALL LIGHT APPROPRIATLY.
--- NOTE | 2018-01-20 18:15 | NUR ---
PAIN MEDICATIONS DUE. PT RESTING WITH EYES CLOSED, AWAKENS WHEN THIS RN ENTERS ROOM. REPORTING 9/10 PAIN. SEE MAR FOR MEDICATIONS GIVEN. WATER REFILLED. CALL LIGHT WITHIN REACH. BED RAILS UP. O2 IN PLACE. PT USING INCENTIVE SPIROMETER. NO ADDITIONAL REQUESTS OR COMPLAINTS AT THIS TIME.
--- NOTE | 2018-01-20 18:40 | NUR ---
PATIENT RELAXING IN BED WATCHING TV. CALL LIGHT WITHIN REACH. NO OTHER NEEDS AT THIS TIME.
--- NOTE | 2018-01-20 19:00 | NUR ---
BEDSIDE REPORT RECEIVED FROM YASHIRA SOLIS. PT SLEEPING AT THIS TIME, EYES CLOSED, 92% ON 3L OXYGEN BY NC. BREATHING IS NON-LABORED. WILL CONTINUE TO MONITOR.
--- NOTE | 2018-01-20 21:20 | NUR ---
IN PT ROOM WITH RT NEREYDA, ASSESSMENT COMPLETE. LUNGS DIMINISHED IN RIGHT LUNG LOBES, COARSE IN LEFT LOWER LOBE. PT ON 3L OXYGEN BY NC, SPO2 93%. NEB TX ADMINISTERED AT THIS TIME. PT DENIES NAUSEA. BOWEL TONES ACTIVE X 4, ABDOMEN SOFT. PT REPORTS SOME CHRONIC NUMBNESS AND TINGLING BUE. CSM OTHERWISE INTACT BLE, BUE. VITALS STABLE, AFEBRILE AT THIS TIME. PT REPORTS PAIN 7.5/10 RIB PAIN, WILL ADMINISTER PAIN MEDICATIONS AVAILABLE.
--- NOTE | 2018-01-20 21:50 | NUR ---
PRN OXYCODONE ADMINISTERED AT THIS TIME FOR 7.5/10 PT REPORTED RIB PAIN. PT GIVEN ENSURE REQUESTED, ENCOURAGED TO DRINK WATER. CALL LIGHT IN REACH, NO ADDL REQUESTS AT THIS TIME, 93% ON 3L OXYGEN BY NC.
--- NOTE | 2018-01-20 23:54 | NUR ---
PT SLEEPING, EYES CLOSED, SPO2 92% ON 3L OXYGEN BY NC, BREATHING NON-LABORED HR 80. LIGHTS OFF IN ROOM.
--- NOTE | 2018-01-21 02:01 | NUR ---
CALL LIGHT ANSWERED, PT AWAKE, SITTING UP IN BED, C/O 7.5/10 RIB PAIN, PRN OXYCODONE ADMINISTERED. AFEBRILE, 98.3. LUNGS DIMINISHED IN RIGHT LOBES, RUB HEARD IN UPPER RIGHT LOBE, LEFT LOWER LUNG DIMINISHED, CLEAR, COARSNESS AUSCULTATED LEFT UPPER LOBE. HR REGULAR RHYTHM. BOWEL TONES ACTIVE. PT CONTINUE TO DENY NAUSEA. URINE HAT EMPTIED AT THIS TIME, QUANTITY SUFFICIENT. PT GIVEN ICE WATER, NO ADDL REQUESTS. SPO2 97% ON 3L OXYGEN, TITRATED TO 2L OXYGEN BY NC, SPO2 96%. WILL CONTINUE TO MONITOR, CALL LIGHT IN REACH.
--- NOTE | 2018-01-21 04:19 | NUR ---
CHECKED ON PT, PT STATES PAIN "DOWN TO A 7, IT'S OKAY". LYING IN BED, AWAKE, ON 2L OXYGEN BY NC SPO2 94%. DENIES NAUSEA PREVIOUSLY REPORTED TO ATHLETIC COORDINATOR. NO REQUESTS AT THIS TIME, WATCHING TV. CALL LIGHT IN REACH.
--- NOTE | 2018-01-21 05:48 | NUR ---
PT TITRATED TO 2L OXYGEN BY NC, SATURATING WELL. PT INDEPENDENT IN ROOM AMBULATING TO RESTROOM FOR VOIDS QUANTITY SUFFICIENT. IV SALINE LOCKED. LUNGS REMAIN DIMINISHED IN RIGHT LOBES, RUB HEARD IN RUQ, COARSE IN LEFT LOWER LOBE. PT DID NOT REQUIRE PRN NEBS THIS SHIFT. PAIN CONTROLLED WITH PRN OXYCODONE, TYLENOL, MOTRIN. DROPLET PRECAUTIONS.
--- NOTE | 2018-01-21 06:45 | NUR ---
CALL LIGHT ANSWERED, PT REQUESTING PRN PAIN MEDICATIONS, ICE WATER AT THIS TIME, PICKLE WATER PUMP OPERATORYASHIRA TURNER IN ROOM TO ADMINISTER.
--- NOTE | 2018-01-21 07:43 | NUR ---
BEDSIDE REPORT RECEIVED FROM [place]OLINA AC. PATIENT SHORT OF BREATH. RESPIRATORY THERAPY CALLED. 3L [address]. SATURATING 92%. OXYCODONE GIVEN AT 0645. SALINE LOCKED IN RIGHT FOREARM. ALL QUESTIONS ANSWERED. DROPLET ISOLATION PERCAUTIONS IN PLACE.
--- NOTE | 2018-01-21 08:10 | NUR ---
PATIENT SITTING STRAIGHT UP IN BED WITH BREAKFAST TRAY. FRESH ICE WATER GIVEN. SUPPLIES SET UP FOR SHOWER. CALL BUTTON IN REACH. NO OTHER NEEDS AT THIS TIME.
--- NOTE | 2018-01-21 10:20 | NUR ---
RN STATED THAT PATIENT WOULD LIKE TO TRY AND SHOWER BUT NOT AT THIS TIME DO TO SOB.
--- NOTE | 2018-01-21 10:47 | NUR ---
STUDENT NURSE IN ROOM TO REFILL PATIENTS WATER.
--- NOTE | 2018-01-21 13:00 | NUR ---
RN STATED THAT PATIENT DOES NO WANT A SHOWER AT THIS TIME. PATIENT STATES THAT SHE WOULD LIKE TO REST AND NOT TO BE DISTURBED AT THIS TIME.
--- NOTE | 2018-01-21 13:03 | NUR ---
DELIVERED MEAL TRAY TO PATIENT. PATIENT ALLOWED TO REST BEFORE LUNCH. WANTS TO NAP AFTER LUNCH WELL. WILL ALLOW MUCH REST WE CAN.
--- NOTE | 2018-01-21 14:48 | NUR ---
YASHIRA SCHMIDT INFORMED ME THAT PT DID NOT WANT TO BE DISTURBED. WILL CONTINUE TO FOLLOW NEEDED
--- NOTE | 2018-01-21 14:59 | NUR ---
GARBAGES EMPTIED WHILE IN ROOM. BREATHING TREATMENT GIVEN BY RT. MOTRIN AND OXYCODONE GIVEN. TEMP 99.3. WATER SWITCHED OUT FOR ICE WATER. PATIENT ATE 5% OF LUNCH. VS TAKEN AND I&Os TALLIED. PATIENT WANTING MORE INFREQUENT INTERRUPTIONS THROUGHOUT DAY. ATTEMPTING TO CLUSTER CARE MUCH POSSIBLE.
--- NOTE | 2018-01-21 15:00 | NUR ---
RN IN ROOM WITH STUDENT NURSE TO SEE PATIENT.
--- NOTE | 2018-01-21 17:16 | NUR ---
RN STATES THAT THE PATIENT DOES NOT WANT TO SHOWER TODAY BECUASE SHE'S TOO TIRED.
--- NOTE | 2018-01-21 18:22 | NUR ---
DROPLET ISO FOR INFLUENZA B +. CHECK WITH INFECTION RN TOMORROW TO FIND OUT WHEN ISOLATION PERCAUTIONS NO LONGER NECESSARY. OXYCODONE GIVEN X2 FOR RIGHT RIB PAIN. ZITHROMAX/AUGMENTIN GIVEN. SALINE LOCKED. BM 01/20. INDEPENDENT IN ROOM. REGULAR DIET. TRY TO CLUSTER CARE TO ALLOW REST PERIODS AND DECREASE INTERRUPTIONS IN ROOM.
--- NOTE | 2018-01-21 18:44 | NUR ---
PATIENT RESTING IN BED WATCHING TV. CALL BUTTON IN REACH. FRESH ICE WATER GIVEN. NO OTHER NEEDS AT THIS TIME.
--- NOTE | 2018-01-21 19:15 | NUR ---
REPORT RECEIVED FROM YASHIRA SCHMIDT OUTSIDE ROOM PT REQUESTING REST. PT SLEEPING, BREATHING NON-LABORED, SPO2 93% 3L OXYGEN BY NC, HR 74. LIGHTS OFF IN ROOM. WILL CONTINUE TO MONITOR.
--- NOTE | 2018-01-21 20:30 | NUR ---
CALL LIGHT ANSWERED, PT AWAKE, C/O 7.5/10 PAIN IN RIBS. PRN OXYCODONE ADMINISTERED. GRIS LANDON IN ROOM TO COMPLETE VITALS, EMPTIED URINE. PT FRUSTRATED REGARDNING HOSPITAL STAY, NOT GETTING ANSWERS RE ILLNESS. CRACKLES HEARD THROUGHOUT LEFT LUNG, RIGHT UPPER LOBE RUB HEARD, DIMINISHED IN RLL. PT 92% ON 3L OXYGEN BY NC. BOWEL TONES ACTIVE X 4. PT DENIES NAUSEA AT THIS TIME, ABD SOFT, NON-TENDER. CSM INTACT BUE, BLE. AFEBRILE. CALL LIGHT IN REACH, NO ADDL REQUESTS. IV FLUSHED WNL, SALINE LOCKED.
--- NOTE | 2018-01-21 23:03 | NUR ---
PT COMPLAINED HEADACHE, MED WITH MOTRIN
--- NOTE | 2018-01-22 00:14 | NUR ---
CHECKED ON PT, PT SLEEPING, EYES CLOSED, BREATHING NON-LABORED, EQUAL CHEST RISE BILATERALLY. SPO2 95% ON 3L OXYGEN NC, HR 72.
--- NOTE | 2018-01-22 02:30 | NUR ---
CHECKED ON PT, PT SLEEPING, EYES CLOSED, SPO2 94% ON 3L OXYGEN BY NC, HR 65. LIGHTS OFF IN ROOM.
--- NOTE | 2018-01-22 03:33 | NUR ---
CALL LIGHT ANSWERED, PT C/O 7.5-8/10 PAIN IN RIBS, STATES "IT'S NOT THAT BAD". PRN OXYCODONE ADMINISTERED. PT SITTING UP IN BED, AWAKE, ALERT. SPO2 96% ON 3L OXYGEN BY NC. LUNG SOUNDS DIMINISHED THROUGHOUT CRACKLES IN LEFT LOWER LOBE, RUB HEARD RIGHT UPPER LOBE, DIMINISHED IN RLL. BOWEL TONES ACTIVE X 4. PT DENIES NAUSEA. PT REQUESTING PRN NEB TX. URINE HAT EMPTIED AT THIS TIME. ICE WATER PROVIDED. NO ADDL REQUESTS, CALL LIGHT IN REACH.
--- NOTE | 2018-01-22 03:45 | NUR ---
RT DAWN IN PT ROOM FOR PRN KRISTEN SY.
--- NOTE | 2018-01-22 05:15 | NUR ---
PT SLEEPING THROUGHOUT SHIFT, ON 3L OXYGEN NC, CONTINUOUS PULSE OX ON. IV SALINE LOCKED WNL. INDEPENDANT IN ROOM FOR VOIDS. PAIN WELL CONTROLLED W PRN OXYCODONE. AFEBRILE THIS SHIFT. PRN NEB X 1 THIS SHIFT.
--- NOTE | 2018-01-22 06:39 | NUR ---
VITALS AND IS AND OS COMPLETE AT THIS TIME, PT 92% ON 3L OXYGEN BY NC. PT SITTING UP IN BED, RATES PAIN 7/10, REQUESTING PRN MOTRIN, COFFEE. PT ALSO REQUESTING MEDICAL RECORDS, GRIS ACEVES TO ASSIST PT WITH MAINTAINING RECORDS. ICE WATER REFILLED. URINE HAT EMPTIED. PT HAD SMALL SOFT BM. CALL LIGHT IN REACH, NO ADDL REQUESTS.
--- NOTE | 2018-01-22 07:27 | NUR ---
REPORT RECEIVED FROM CAROLINA IN [place] OUTSIDE PATIENT DOOR PER REQUEST. REPORTED PATIENT ON 3 02 VIA MT. WANTS TO REQUEST HER MEDICAL RECORDS. PATIENT INDEPENDENT IN ROOM. HAD SMALL BOWEL MOVEMENT OVERNIGHT. SALINE LOCKED.
--- NOTE | 2018-01-22 11:20 | NUR ---
CARE CONFERENCE ATTENDEES: PATIENT STAFF: DR SHEFFIELD, [employer]SELF CASE MANAGEMENT, BETH RT, [facility], [facility] RN, ROXANA RN. DR SHEFFIELD DISCUSSED WITH PT HER ILLNESS AND THE PROGRESS SHE IS MAKING. SHE IS IMPROVING AND WILL BE READY TO GO HOME IN A COUPLE/FEW DAYS. SHE MAY NEED TO GO HOME ON O2, BUT WILL HAVE A RT HOME QUALIFIER FOR O2 PRIOR TO DC. PT ASKED IF SHE WOULD BE CONTAGIOUS TO HER GRANDCHILDREN IN THE HOME. DR SHEFFIELD STATES THAT IT SHOULD BE OK. WE ALSO TALKED ABOUT HER NEEDING A PCP AND SHE STATES SHE HAS NOT SEEN A DR SINCE 2013, BUT THAT IT WAS AT [facility]. SO SHE WOULD LIKE US TO CALL THE CLINIC AND SEE IF WE CAN'T GET THAT SET UP. WE ALSO TALKED TO HER ABOUT THE POSSIBILITY OF THE INSURANCE NOT BEING WILLING TO PAY FOR THE O2 AT HOME. SHE STATED UNDERSTANDING OF THIS. DENIED FURTHER QUESTIONS. DR SHEFFIELD ALSO TOLD HER SHE WOULD BE GOING HOME ON AN ORAL ANTIBX FOR A FEW MORE DAYS.
--- NOTE | 2018-01-22 13:00 | NUR ---
PT TOLD YASHIRA SCHMIDT SHE WANTED TO REST, AND MENTIONED TO PT I WAS AVAILABLE TO VISIT. PT SAID THANKS FOR CARING. WILL FOLLOW NEEDED
--- NOTE | 2018-01-22 14:02 | NUR ---
TITRATING OXYGEN OFF ON PATIENT. DOWN TO 1L 02 VIA MN NOW. O2 AT 95%. WILL CONTINUE TO MONITOR. CARE CONFERENCE AT 1100 THIS MORNING TO DISCUSS PROGRESS AND PLAN FOR DISCHARGE. PATIENT IN BETTER SPIRITS TODAY.
--- NOTE | 2018-01-22 17:08 | NUR ---
PT ON ROOM AIR FROM 1600 TO 1700. DESATURATED TO 88%. INCREASED O2 TO 1L O2 UNTIL HOLDING SATURATIONS ABOVE 90%.
--- NOTE | 2018-01-22 17:58 | NUR ---
ISOLATION PERCAUTIONS REMOVED TODAY. CARE CONFERENCE AT 1100. PATIENT TITRATED TO 1L 02 @ 92%. INDEPENDENT IN ROOM. ZITHROMAX D/Cd. AUGMENTIN PO. SALINE LOCKED. OXYCODONE X2. MOTRIN X1.
--- NOTE | 2018-01-22 20:00 | NUR ---
RECEIVED REPORT AT 1900. PT REFUSED BEDSIDE REPORT.
--- NOTE | 2018-01-22 22:00 | NUR ---
V/S ARE WDL EXCEPT HER TEMP. AT THIS TIME IT IS 99.6 F. MOTRIN HAS BEEN GIVEN. ALL LOBES ARE CLEAR BUT DIMINISHED. PT IS ALERT AND ABLE TO KEEP O2 SATS >91% ON 1L OF O2 NC. NO EDEMA NOTED, ABD SOUNDS ARE PRESENT. PT REFUSED MIRALAX AND SENNA TONIGHT. WE WILL LET PT SLEEP MUCH POSSIBLE PER HER REQUEST THIS SHIFT. NO NEW CONCERNS AT THIS TIME. PAIN WAS 7/10, PRN OXY 7.5MG WAS GIVEN.
--- NOTE | 2018-01-23 | NUR ---
TEMP AT 2330 WAS 99.5. TYLENOL 500MG WAS GIVEN. WILL CONTINUE TO MONITOR. PT IS SLEEPING AT THIS TIME.
--- NOTE | 2018-01-23 02:07 | NUR ---
TEMP AT THIS TIME IS 98.2. PT WAS SWEATING A LOT SHE STATED. RIGHT LOBES ARE STILL VERY DIMINISHED. LEFT LOBES ARE CLEAR AND WELL AUDIBLE. PT IS BACK ASLEEP. WILL CONTINUE TO MONITOR HER TEMP.
--- NOTE | 2018-01-23 04:00 | NUR ---
PT IS SLEEPING AT THIS TIME.
--- NOTE | 2018-01-23 05:00 | NUR ---
VITALS AND I&OS DONE AND CHARTED. BEDSIDE TABLE AND CALL LIGHT WITHIN REACH. GOT PT A WARM BLANKET PER HER REQUEST. SHE NEEDS NOTHING MORE AT THIS TIME.
--- NOTE | 2018-01-23 05:20 | NUR ---
PT STARTED SHIFT WITH A TEMP OF 100.3. PRN MOTRIN AND TYLENOL HAD TO BE GIVEN IN ORDER FOR HER TEMP TO BE WDL. PT NOW IS AFEBRILE. WITH FIRST ASSESSMENT ALL LOBES WERE DIMINISHED. WITH SECOND ASSESSMENT LEFT LOBES WERE CLEAR. AT AROUND 2300 PT NEEDED TO BE PUT ON 3L OF O2 DUE TO SATS IN THE LOW80'S. PT O2 SATS HAVE REMAINED >92% SINCE. WE TRIED OUR BEST TO NOT DISTURB THIS PT TOO MUCH OVERALL. URINE OUTPUT HAS ALSO BEEN ADEQUATE. V/S ARE WDL. NO OTHER ISSUES NOTED SO FAR.
--- NOTE | 2018-01-23 07:15 | NUR ---
BEDSIDE HANDOFF REPORT RECEIVED FROM REGULATOR PIN INSERTER RN. PT RESTING IN BED. PT ON 3L NC, O2 SATS 93%. PT DENIES NEEDS AT THIS TIME.
--- NOTE | 2018-01-23 08:20 | NUR ---
PT RESTING IN BED. PT COMPLAINT OF PAIN TO RIGHT LOWER RIBS ANTERIOR AND POSTERIOR, RATIGN PAIN 7/10, REQUESTING PAIN MEDICATION, 7.5 MG OXYCODONE GIVEN. PT WEANED TO 2L NC, O2 SATS 95%, LUNG SOUNDS CLEAR ON LEFT, DIMINISHED ON RIGHT, PAIN WITH DEEP BREATHING. PT TOLERATING REGULAR DIET, DENIES NAUSEA, BOWEL TONES ACTIVE, PT REFUSED BOWEL MEDICATIONS. PT WITHOUT EDEMA, CMS INATCT. DISCUSSED PLAN OF CARE FOR THE DAY, PT TO GO FOR CHEST XRAY THIS AM. PT DENIES OTHER NEEDS AT THIS TIME. TERRAZZO GRINDER TO BEDSIDE FOR NEB.
--- NOTE | 2018-01-23 09:58 | NUR ---
PT COMPLAINT OF HEADACHE, REQUESTING MOTRIN, 400 MG MOTRIN PROVIDED. PT STATES RIGHT PAIN SLIGHTLY IMPROVED AFTER OXYCODONE. TYPE COPYIST TO BEDSIDE FOR HOME O2 QUALIFICATION.
--- NOTE | 2018-01-23 11:09 | NUR ---
IV REMOVED FOR DISCHARGE, PRESSURE HELD, [facility]TACT. [facility] PT ALLOWED TO GET DRESSED AND COLLECT BELONGINGS. PT DENIES OTHER NEEDS AT THIS TIME.
[2018-01-23] MEDS ORDERED: AMOX TR-K CLV1 EAC1 PO (11:14)
[2018-01-23] MEDS ORDERED: OXYCODONE HCL5 MG PO (11:15)
--- NOTE | 2018-01-23 11:16 | NUR ---
PT IS SITTING UP ON SIDE OF BED GATHERING HER THINGS, PT IS READY TO DISCHARGE. VITALS TAKEN
--- NOTE | 2018-01-23 13:54 | NUR ---
PT SITTING IN BED, O2 NC IN PLACE. SHE IS ALERT AND ORIENTED, AND EXPRESSED TO ME THAT SHE IS FEELING BETTER, BUT STILL NOT SURE IF SHE IS WELL ENOUGH FOR DC. PT GOT A LITTLE EMOTIONAL, STAYED TO DEBRIEF AND TOLD PT I WOULD VISIT WITH HER RN GENNY. PRAYED WITH PT, SHE THANKED ME. WILL FOLLOW NEEDED
== END 2018-01-23 12:00 | disposition home or self-care (01) | DRG 871 ==
LOC: ED 18:24 → CCU 20:45 → MS 01-18 12:00
PROVIDERS: ADMIT Internal Medicine
DX: A40.3 Sepsis due to Streptococcus pneumoniae (principal); J18.9 Pneumonia, unspecified organism; J96.01 Acute respiratory failure with hypoxia; J90 Pleural effusion, not elsewhere classified; J11.1 Influenza due to unidentified influenza virus with other respiratory manifestations; E87.6 Hypokalemia; F17.210 Nicotine dependence, cigarettes, uncomplicated; I10 Essential (primary) hypertension; G43.909 Migraine, unspecified, not intractable, without status migrainosus; F41.9 Anxiety disorder, unspecified
CPT/HCPCS: 36415; 36600; 71045; 71046; 71260; 80048; 80053; 80069; 80202; 82803; 83605; 83735; 85025; 87040; 87070; 87205; 87502; 93005; 93010; 94640; 94668; 94761; 94799; 96374; 96375; 99285; 99407; J0456; J0696; J1650; J1956; J2405; J3370; J3475; J7030; J7040; J7050; J7120; Q9967

== ENCOUNTER 2020-04-21 11:37 | Emergency (ER) | payer OTHER ==
[~2020-04-21] VITALS: Ht 172.7 cm; Wt 77.1 kg
--- OUTSIDE RECORDS SUMMARY | ~2020-04-21 | XMS | Encounter Summary ---
Demographics + + + | Address | [address] | | | [place] [address] | + + + | Home Phone | | + + + | Preferred Language | Unknown | + + + | Marital Status | | + + + | Yarsanism Affiliation | Unknown | + + + | Race | Unknown | + + + | Ethnic Group | Unknown | + + + Author + + + | Author | [facility] | | | and [place] | + + + | Organization | [facility] | | | and [place] | + + + | Address | Unknown | + + + | Phone | Unavailable | + + + Support + + +---------+ + | Name | Relationship | Address | Phone | + + +---------+ + | Vitor Casillas | ECON | Unknown | | + + +---------+ + | Srinivas Vinny | ECON | Unknown | | + + +---------+ + Care Team Providers + +------+ + | Care Real Estate Director Name | Role | Phone | + +------+ + | No, Physician | PCP | Unavailable | + +------+ + Encounter Details +--------+ + + + + | Date | Type | Department | Care Team | Description | +--------+ + + + + | 01/23/ | Imaging | [facility] | Provider, | | | 2018 | Exam | [facility] | [facility] [address] | | | | | [facility] [address] | | | | | [address] | [place] [address] | | | | | [place] [address] | | | | | | [phone] | | | +--------+ + + + + Social History + +-------+ +--------+------+ | Tobacco Use | Types | Packs/Day | Years | Date | | | | | Used | | + +-------+ +--------+------+ | Never Assessed | | | | | + +-------+ +--------+------+ + + + | Sex Assigned at | Date Recorded | | | | + + + | Not on file | | + + + documented as of this encounter Plan of Treatment Not on filedocumented as of this encounter Procedures + +--------+ + + + | Procedure Name | Priori | Date/Time | Associated Diagnosis | Comments | | | ty | | | | + +--------+ + + + | XR CHEST 2 VIEWS | Routin | 01/23/2018 | | Results for this | | | e | 8:35 AM | | procedure are in the | | | | PDT | | results section. | + +--------+ + + + documented in this encounter Results XR Chest 2 Vws (01/23/2018 8:35 AM PDT) + + | Specimen | + + | | + + + + + | Narrative | Performed At | + + + | External films for comparison only - no result from [place]. | [facility] | + + + + +---------+ + + | Performing | Address | City/State/Zipcode | Phone Number | | Organization | | | | + +---------+ + + | [facility] | | | | + +---------+ + + documented in this encounter Visit Diagnoses Not on filedocumented in this encounter"
--- OUTSIDE RECORDS SUMMARY | ~2020-04-21 | XMS | Clinical Summary ---
Demographics + + + | Address | [address] | | | [place] [address] | + + + | Home Phone | | + + + | Preferred Language | Unknown | + + + | Marital Status | | + + + | Pentecostalism Affiliation | Unknown | + + + | Race | Unknown | + + + | Ethnic Group | Unknown | + + + Author + + + | Author | [facility] | | | and [place] | + + + | Organization | [facility] | | | and [place] | + + + | Address | Unknown | + + + | Phone | Unavailable | + + + Support + + +---------+ + | Name | Relationship | Address | Phone | + + +---------+ + | Vitor Casillas | ECON | Unknown | | + + +---------+ + | Srinivas Carrollson | ECON | Unknown | | + + +---------+ + Care Team Providers + +------+ + | Care Neuropsychology Service Director Name | Role | Phone | + +------+ + | No, Physician | PCP | Unavailable | + +------+ + Allergies Not on File Medications Not on file Active Problems Not on file Social History + +-------+ +--------+------+ | Tobacco [...] on file | | + + + Last Filed Vital Signs Not on file Plan of Treatment + + + + + | Health Maintenance | Due Date | Last | Comments | | | | Done | | + + + + + | Cervical Cancer | | | | | Screening (Pap) | 0 | | | + + + + + | Breast Cancer | | | | | Screening | 5 | | | + + + + + | Vaccine: | | 01/13/20 | | | Dtap/Tdap/Td (2 - | 8 | 08 | | | Td) | | | | + + + + + | Vaccine: Influenza | | | | | (#1) | 0 | | | + + + + + Results Not on filefrom Last 3 Months Insurance + +--------+ +--------+ +---------+--------+ | Payer | Benefi | Subscriber | Effect | Phone | Address | Type | | | t Plan | ID | blaine | | | | | | / | | Dates | | | | | | Group | | | | | | + +--------+ +--------+ +---------+--------+ | [employer] | MODA | [id number] | | [phone] | | Medica | | MEDICAID HMO | HEALTH | | 018-Pr | 1 | | id | | | MDCD | | esent | | | | | | [place] | | | | | | + +--------+ +--------+ +---------+--------+ | [place]ICA[place] | MEDICA | [id number] | 01/15/20 | [id number] | | Medica | | | [place] | | 18-Pre | 2 | | id | | | PLUS | | sent | | | | + +--------+ +--------+ +---------+--------+ + +--------+ +--------+ + + | Guarantor Name | Accoun | Relation to | Date | Phone | Billing Address | | | t Type | Patient | of | | | | | | | | | | + +--------+ +--------+ + + | Holli Owen | Person | Self | [birth year] | [address] | | | al/Fam | | 1970 | [phone] | [place] [address] | | | burke | | | 8 (Home) | | + +--------+ +--------+ + + Advance Directives + + + + + | Type | Date Recorded | Patient | Explanation | | | | Batch Attendant | | + + + + + | Power of | | | | | Flare Man | | | | + + + + + | Advance | | | | | Directive | | | | + + + + +"
--- OUTSIDE RECORDS SUMMARY | ~2020-04-21 | XMS | Encounter Summary ---
Demographics + + + | Address | [address] | | | [place] [address] | + + + | Home Phone | | + + + | Preferred Language | Unknown | + + + | Marital Status | | + + + | Orthodoxy Affiliation | Unknown | + + + | Race | Unknown | + + + | Ethnic Group | Unknown | + + + Author + + + | Author | [facility] | | | and [place] | + + + | Organization | [facility] | | | and [place] | + + + | Address | Unknown | + + + | Phone | Unavailable | + + + Support + + +---------+ + | Name | Relationship | Address | Phone | + + +---------+ + | Vitor Casillas | ECON | Unknown | | + + +---------+ + | Srinivas Casillas | ECON | Unknown | | + + +---------+ + Care Team Providers + +------+ + | Care Bar Porter Name | Role | Phone | + +------+ + | No, Physician | PCP | Unavailable | + +------+ + Encounter Details +--------+ + + + + | Date | Type | Department | Care Team | Description | +--------+ + + + + | 01/23/ | Orders Only | [facility] | Provider, | Pneumonia of both | | 2018 | | [facility] | Historical, 180 | upper lobes due to | | | | IMAGING [address] | [address] | Pneumocystis | | | | [address] [place] | [place] [address] | pilloii ([facility]) | | | | [place] [address] | | | | | | [phone] | | | +--------+ + + + [...] | + +--------+ + + + | EXTRA LAVENDER TOP | Routin | 01/23/2018 | Pneumonia of both | Results for this | | TUBE | e | 1:53 PM | upper lobes due to | procedure are in the | | | | PDT | Pneumocystis | results section. | | | | | abnerrovecii (HCC) | | + +--------+ + + + | EXTRA GREEN TOP TUBE | Routin | 01/23/2018 | Pneumonia of both | Results for this | | | e | 1:53 PM | upper lobes due to | procedure are in the | | | | PDT | Pneumocystis | results section. | | | | | jirovecii (HCC) | | + +--------+ + + + | EXTRA GOLD TOP TUBE | Routin | 01/23/2018 | Pneumonia of both | Results for this | | | e | 1:53 PM | upper lobes due to | procedure are in the | | | | PDT | Pneumocystis | results section. | | | | | jirovecii (HCC) | | + +--------+ + + + documented in this encounter Results PTT (01/23/2018 1:53 PM PDT) + +--------+ + + + | Component | Value | Ref Range | Performed | Pathologist | | | | | At | Signature | + +--------+ + + + | aPTT | 37 (H) | 22 - 36 seconds | [facility] | | | | | | [facility] | | | | | | MEDICAL | | | | | | CENTER - | | | | | | LABORATORY | | + +--------+ + + + + + | Specimen | + + | Blood | + + + + + + + | Performing | Address | City/State/Zipcode | Phone Number | | Organization | | | | + + + + + | [facility] | [address] | [place] | [phone] | | [facility] | | [address] | | | - LABORATORY | | | | + + + + + Extra Lavender Top Tube (01/23/2018 1:53 PM PDT) + +-------+ + + + | Component | Value | Ref Range | Performed | Pathologist | | | | | At | Signature | + +-------+ + + + | Extra | Done | | [facility] | | | Martine | | | [facility] | | | Top Tube | | | MEDICAL | | | | | | CENTER - | | | | | | LABORATORY | | + +-------+ + + + + + | Specimen | + + | Blood | + + + + + + + | Performing | Address | City/State/Zipcode | Phone Number | | Organization | | | | + + + + + | [facility] | [address] | [place] | [phone] | | [facility] | | [address] | | | - LABORATORY | | | | + + + + + Extra Gold Top Tube (01/23/2018 1:53 PM PDT) + +-------+ + + + | Component | Value | Ref Range | Performed | Pathologist | | | | | At | Signature | + +-------+ + + + | Extra Gold | Done | | [facility] | | | Top Tube | | | [facility] | | | | | | MEDICAL | | | | | | CENTER - | | | | | | LABORATORY | | + +-------+ + + + + + | Specimen | + + | Blood | + + + + + + + | Performing | Address | City/State/Zipcode | Phone Number | | Organization | | | | + + + + + | [facility] | [address] | [place] | [phone] | | [facility] | | [address] | | | - LABORATORY | | | | + + + + + Extra Green Top Tube (01/23/2018 1:53 PM PDT) + +-------+ + + + | Component | Value | Ref Range | Performed | Pathologist | | | | | At | Signature | + +-------+ + + + | Extra Green | Done | | [facility] | | | Top Tube | | | [facility] | | | | | | MEDICAL | | | | | | CENTER - | | | | | | LABORATORY | | + +-------+ + + + + + | Specimen | + + | Blood | + + + + + + + | Performing | Address | City/State/Zipcode | Phone Number | | Organization | | | | + + + + + | [facility] | 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
--- OUTSIDE RECORDS SUMMARY | ~2020-04-21 | XMS | Encounter Summary ---
Demographics + + + | Address | [address] | | | [place] [address] | + + + | Home Phone | | + + + | Preferred Language | Unknown | + + + | Marital Status | | + + + | Orthodox Affiliation | Unknown | + + + | Race | Unknown | + + + | Ethnic Group | Unknown | + + + Author + + + | Author | [facility] | | | and [place] | + + + | Organization | [facility] | | | and [...] Team Providers + +------+ + | Care Regional Facilities Specialist Name | Role | Phone | + +------+ + | No, Physician | PCP | Unavailable | + +------+ + Encounter Details +--------+ + + + + | Date | Type | Department | Care Team | Description | +--------+ + + + + | 01/23/ | Hospital | [facility] | Francia Hanson, | Pleural effusion, | | 2018 | Encounter | MED CTR ULTRASOUND | MD [address] | right | | | | [address] | [place], [place] | | | | | [place] | [address] | | | | | [address] | | | | | | [phone] | Fanta Harrison | | | | | | M, Technologist | | | | | | Rad, [facility] | | +--------+ + + + + [...] | + +--------+ + + + | PH, BODY FLUID | Routin | 01/23/2018 | | Results for this | | | e | 5:25 PM | | procedure are in the | | | | PDT | | results section. | + +--------+ + + + | US GUIDED | Routin | 01/23/2018 | Pleural effusion, | Results for this | | THORACENTESIS WO | e | 3:14 PM | right | procedure are in the | | CHEST TUBE | | PDT | | results section. | + +--------+ + + + documented in this encounter Results PH, Body Fluid (01/23/2018 5:25 PM PDT) + + + + + + | Component | Value | Ref Range | Performed | Pathologist | | | | | At | Signature | + + + + + + | pH, Body | 7.4 | | [facility] | | | Fluid | | | [facility] | | | | | | MEDICAL | | | | | | CENTER - | | | | | | LABORATORY | | + + + + + + | Source | Thoracentesis | | [facility] | | | | | | [facility] | | | | | | MEDICAL | | | | | | CENTER - | | | | | | LABORATORY | | + + + + + + + + | Specimen | + + | Body Fluid | + + + + + + + | Performing | Address | City/State/Zipcode | Phone Number | | Organization | | | | + + + + + | [facility] | [address] | [place] | [phone] | | [facility] | | [address] | | | - LABORATORY | | | | + + + + + US Guided Thoracentesis (01/23/2018 3:14 PM PDT) + + | Specimen | + + | | + + + + + | Narrative | Performed At | + + + | ULTRASOUND-GUIDED DIAGNOSTIC RIGHT THORACENTESIS 01/23/2018 12:00 AM | [facility] | | CLINICAL HISTORY: Right pleural effusion and pneumonia, evaluate | | | for empyema COMPARISON: Preceding radiography and CT | | | PROCEDURE: After explaining the potential risks and benefits of the | | | procedure to the patient, verbal and written consent were obtained. | | | With the patient in the upright position, ultrasound was utilized | | | to identify a suitable site for thoracentesis in the right posterior | | | chest. Right pleural fluid with identified, with significant | | | septation. Given the relatively small volume of fluid and organized | | | appearance, diagnostic sampling with a spinal needle was chosen. | | | The overlying skin was prepped and draped in sterile fashion, and | | | approximately 5 mL 1% lidocaine utilized for local anesthesia. A | | | 18-gauge spinal needle was advanced into the right pleural space | | | without difficulty under direct ultrasound visualization, targeting a | | | dominant fluid pocket. There was immediate return of slightly | | | blood-tinged fluid. 35 mL fluid were subsequently aspirated | | | manually without difficulty. No further fluid could be obtained. | | | The needle was removed, and hemostasis assured with manual | | | compression. The patient tolerated the procedure well, and there | | | were no immediate complications. She was transferred from the | | | department in stable condition. Fluid was sent for laboratory | | | analysis as ordered by the attending provider. IMPRESSION - 1. | | | ULTRASOUND-GUIDED DIAGNOSTIC RIGHT THORACENTESIS PRODUCING 35 CC | | | BLOOD TINGED FLUID DESCRIBED. Dictated and Signed by: Miol | | | MD Jatin Electronically signed: 01/23/2018 3:12 PM | | + + + + + | Procedure Note | + + | Drake, Rad Results In - 01/23/2018 3:15 PM PDT ULTRASOUND-GUIDED DIAGNOSTIC RIGHT | | THORACENTESIS 01/23/2018 12:00 AM CLINICAL HISTORY: Right pleural effusion and | | pneumonia, evaluate for empyema COMPARISON: Preceding radiography and CT PROCEDURE: | | After explaining the potential risks and benefits of the procedureto the patient, verbal | | and written consent were obtained. With the patient inthe upright position, ultrasound | | was utilized to identify a suitable site forthoracentesis in the right posterior chest. | | Right pleural fluid withidentified, with significant septation. Given the relatively | | small volume offluid and organized appearance, diagnostic sampling with a spinal needle | | waschosen. The overlying skin was prepped and draped in sterile fashion, | | andapproximately 5 mL 1% lidocaine utilized for local anesthesia. A 18-gaugespinal | | needle was advanced into the right pleural space without difficulty underdirect | | ultrasound visualization, targeting a dominant fluid pocket. There wasimmediate return | | of slightly blood-tinged fluid. 35 mL fluid were subsequentlyaspirated manually without | | difficulty. No further fluid could be obtained. Theneedle was removed, and hemostasis | | assured with manual compression. The patienttolerated the procedure well, and there | | were no immediate complications. Shewas transferred from the department in stable | | condition. Fluid was sent forlaboratory analysis as ordered by the attending provider. | | IMPRESSION - 1. ULTRASOUND-GUIDED DIAGNOSTIC RIGHT THORACENTESIS PRODUCING 35 CC | | BLOODTINGED FLUID DESCRIBED.Dictated and Signed by: Milo Steiner MD Electronically | | signed: 01/23/2018 3:12 PM | |was transferred from the department in stable condition. Fluid was sent for | |laboratory analysis as ordered by the attending provider. | | | |IMPRESSION - | |1. ULTRASOUND-GUIDED DIAGNOSTIC RIGHT THORACENTESIS PRODUCING 35 CC BLOOD | |TINGED FLUID DESCRIBED. | | | |Dictated and Signed by: Milo Steiner MD | | Electronically signed: 01/23/2018 3:12 PM | + + + +---------+ + + | Performing | Address | City/State/Zipcode | Phone Number | | Organization | | | | + +---------+ + + | [facility] | | | | + +---------+ + + documented in this encounter Visit Diagnoses + + | Diagnosis | + + | Pleural effusion, right Unspecified pleural effusion | + + documented in this encounter"
--- OUTSIDE RECORDS SUMMARY | ~2020-04-21 | XMS | Encounter Summary ---
Demographics + + + | Address | [address] | | | [place] [address] | + + + | Home Phone | | + + + | Preferred Language | Unknown | + + + | Marital Status | | + + + | Orthodox Affiliation | Unknown | + + + | Race | Unknown | + + + | Ethnic Group | Unknown | + + + Author + + + | Author | [facility] | | | and [place] | + + + | Organization | [facility] | | | and [...] Team Providers + +------+ + | Care Deputy Attorney General Name | Role | Phone | + [...] | | | [address] | [place] [address] | | | | | [place] [address] | | | | | | [phone] | | | +--------+ + + + [...] +--------+ + + + | XR CHEST 1 VIEW | Routin | 01/14/2018 | | Results for this | | | e | 8:10 PM | | procedure are in the | | | | PDT | | results section. | + +--------+ + + + documented in this encounter Results XR Chest 1 Vw (01/14/2018 8:10 PM PDT) + + | Specimen | + + | | + + + + + | Narrative | Performed At | + + + | External films for comparison only - no result from [place]. | [facility] | + + + + +---------+ + + | Performing | Address | City/State/Zipcode | Phone Number | | Organization | | | | + +---------+ + + | [facility] | | | | + +---------+ + + documented in this encounter Visit Diagnoses Not on filedocumented in this encounter"
--- OUTSIDE RECORDS SUMMARY | ~2020-04-21 | XMS | Encounter Summary ---
Demographics + + + | Address | [address] | | | [place] [address] | + + + | Home Phone | | + + + | Preferred Language | Unknown | + + + | Marital Status | | + + + | Adventist Affiliation | Unknown | + + + | Race | Unknown | + + + | Ethnic Group | Unknown | + + + Author + + + | Author | [facility] | | | and [place] | + + + | Organization | [facility] | | | [...] Team Providers + +------+ + | Care Power Grader Operator Name | Role | Phone | + [...] | | | [address] | [place] [address] | | | | | [place] [address] | | | | | | [phone] | | | +--------+ + + + [...] XR CHEST 1 VIEW | Routin | 01/19/2018 | | Results for this | | | e | 12:05 PM | | procedure are in the | | | | PDT | | results section. | + +--------+ + + + documented in this encounter Results XR Chest 1 Vw (01/19/2018 12:05 PM PDT) + + | Specimen | + + | | + + + + + | Narrative | Performed At | + + + | External films for comparison only - no result from [place]. | [facility] | + + + + +---------+ + + | Performing | Address | City/State/Zipcode | Phone Number | | Organization | | | | + +---------+ + + | [facility] | | | | + +---------+ + + documented in this encounter Visit Diagnoses Not on filedocumented in this encounter"
--- OUTSIDE RECORDS SUMMARY | ~2020-04-21 | XMS | Encounter Summary ---
Demographics + + + | Address | [address] | | | [place] [address] | + + + | Home Phone | | + + + | Preferred Language | Unknown | + + + | Marital Status | | + + + | Holiness Affiliation | Unknown | + + + | Race | Unknown | + + + | Ethnic Group | Unknown | + + + Author + + + | Author | [facility] | | | and [place] | + + + | Organization | [facility] | | | and [...] Team Providers + +------+ + | Care Dot Net Developer Name | Role | Phone | + +------+ + | No, Physician | PCP | Unavailable | + +------+ + Encounter Details +--------+ + + + + | Date | Type | Department | Care Team | Description | +--------+ + + + + | 01/23/ | Orders Only | [facility] | Francia Hanson, | Pleural effusion | | 2018 | | [facility] | [address] | (Primary Dx) | | | | [address] | [place] | | | | | [place] | [address] | | | | | [address] | | | | | | [phone] | | | +--------+ + + + [...] | + +--------+ + + + | CULTURE, BODY FLUID, | Routin | 01/23/2018 | Pleural effusion | Results for this | | AEROBE | e | 3:32 PM | | procedure are in the | | | | PDT | | results section. | + +--------+ + + + | LACTATE | Routin | 01/23/2018 | Pleural effusion | Results for this | | DEHYDROGENASE, BODY | e | 3:32 PM | | procedure are in the | | FLUID | | PDT | | results section. | + +--------+ + + + | CULTURE, BODY FLUID, | Routin | 01/23/2018 | Pleural effusion | Results for this | | ANAEROBE | e | 3:32 PM | | procedure are in the | | | | PDT | | results section. | + +--------+ + + + | CULTURE, BODY FLUID, | Routin | 01/23/2018 | Pleural effusion | Results for this | | STERILE, SMEAR, | e | 3:32 PM | | procedure are in the | | WITH ANAEROBES | | PDT | | results section. | + +--------+ + + + | PROTEIN, BODY FLUID | Routin | 01/23/2018 | Pleural effusion | Results for this | | | e | 3:32 PM | | procedure are in the | | | | PDT | | results section. | + +--------+ + + + | GLUCOSE, BODY FLUID | Routin | 01/23/2018 | Pleural effusion | Results for this | | | e | 3:32 PM | | procedure are in the | | | | PDT | | results section. | + +--------+ + + + documented in this encounter Results Culture, Body Fluid, Anaerobe (01/23/2018 3:32 PM PDT) + + + + + + | Component | Value | Ref Range | Performed | Pathologist | | | | | At | Signature | + + + + + + | Culture | No anaerobes isolated. | | [facility] | | | | | | [facility] | | | | | | MEDICAL | | | | | | CENTER - | | | | | | LABORATORY | | + + + + + + + + | Specimen | + + | Body Fluid - | | Specimen from pleura | | obtained by | | thoracentesis | | (specimen) | + + + + + + + | Performing | Address | City/State/Zipcode | Phone Number | | Organization | | | | + + + + + | [facility] | [address] | [place] | [phone] | | [facility] | | [address] | | | - LABORATORY | | | | + + + + + Culture, Body Fluid, Aerobe (01/23/2018 3:32 PM PDT) + + + + + + | Component | Value | Ref Range | Performed | Pathologist | | | | | At | Signature | + + + + + + | Culture | No Growth | | [facility] | | | | | | [facility] | | | | | | MEDICAL | | | | | | CENTER - | | | | | | LABORATORY | | + + + + + + | Gram Stain | No white blood cells | | [facility] | | | Result | (PMNs) seen | | [facility] | | | | | | [facility]ICAL | | | | | | CENTER - | | | | | | LABORATORY | | + + + + + + | Gram Stain | No organisms seen | | [facility] | | | Result | | | [facility] | | | | | | [facility]ICAL | | | | | | CENTER - | | | | | | LABORATORY | | + + + + + + + + | Specimen | + + | Body Fluid - | | Specimen from pleura | | obtained by | | thoracentesis | | (specimen) | + + + + + + + | Performing | Address | City/State/Zipcode | Phone Number | | Organization | | | | + + + + + | [facility] | [address] | [place] | [phone] | | [facility] | | [address] | | | - LABORATORY | | | | + + + + + Lactate Dehydrogenase, Body Fluid (01/23/2018 3:32 PM PDT) + + + + + + | Component | Value | Ref Range | Performed | Pathologist | | | | | At | Signature | + + + + + + | Lactate | 920 | U/L | [facility] | | | Dehydrogena | | | [facility] | | | se, Body | | | MEDICAL | | | Fluid | | | CENTER - | | | | | | LABORATORY | | + + + + + + | Source | Thoracentesis | | [facility] | | | | | | [facility] | | [...] + | [facility] | [address] | [place], [place] | [phone] | | [facility] | | [address] | | | - LABORATORY | | | | + + + + + Glucose, Body Fluid (01/23/2018 3:32 PM PDT) + + + + + + | Component | Value | Ref Range | Performed | Pathologist | | | | | At | Signature | + + + + + + | Glucose, | 77 | mg/dL | [facility] | | | Body Fluid | | | [facility] | [...] ST. | [address] | [place] | [phone] | | [facility] | | [address] | | | - LABORATORY | | | | + + + + + Protein, Body Fluid (01/23/2018 3:32 PM PDT) + + + + + + | Component | Value | Ref Range | Performed | Pathologist | | | | | At | Signature | + + + + + + | Protein, | 3.4 | g/dL | [facility] | | | Body Fluid | | | [facility] | | | | | | MEDICAL | | | | | | CENTER - | | | | | | LABORATORY | | + + + + + + | Source | Thoracentesis | | [facility] | | | | | | [facility] | | [...] ST. | [address] | [place] | [phone] | | [facility] | | [address] | | | - LABORATORY | | | | + + + + + documented in this encounter Visit Diagnoses + + | Diagnosis | + + | Pleural effusion - Primary Unspecified pleural effusion | + + documented in this encounter"
--- OUTSIDE RECORDS SUMMARY | ~2020-04-21 | XMS | Encounter Summary ---
Demographics + + + | Address | [address] | | | [place] [address] | + + + | Home Phone | | + + + | Preferred Language | Unknown | + + + | Marital Status | | + + + | Nondenominational Affiliation | Unknown | + + + | Race | Unknown | + + + | Ethnic Group | Unknown | + + + Author + + + | Author | [facility] | | | and [place]re[place] | + + + | Organization | [facility] | | | and [...] Team Providers + +------+ + | Care Hardwood Floor Layer Name | Role | Phone | + +------+ + | No, Physician | PCP | Unavailable | + +------+ + Encounter Details +--------+ + + + + | Date | Type | Department | Care Team | Description | +--------+ + + + + | 02/02/ | Imaging | [facility] | Provider, | | | 2020 | Exam | [facility] | MD [address] | | | | | IMAGING [address] | | | | | [address] | [place] [address] | | | | | [place] [address] | | | | | | [phone] | | | +--------+ + + + [...] + +--------+ + + + | XR HAND RIGHT 3 + VW | Routin | 01/15/2016 | | Results for this | | | e | 12:05 AM | | procedure are in the | | | | PDT | | results section. | + +--------+ + + + documented in this encounter Results XR Hand Right 3 + Vw (01/15/2016 12:05 AM PDT) + + | Specimen | + + | | + + + + + | Narrative | Performed At | + + + | External films for comparison only | [facility] | | | | | No results will be in the chart. | | + + + + +---------+ + + | Performing | Address | City/State/Zipcode | Phone Number | | Organization | | | | + +---------+ + + | [facility] | | | | + +---------+ + + documented in this encounter Visit Diagnoses Not on filedocumented in this encounter"
--- OUTSIDE RECORDS SUMMARY | ~2020-04-21 | XMS | Encounter Summary ---
Demographics + + + | Address | [address] | | | [place] [address] | + + + | Home Phone | | + + + | Preferred Language | Unknown | + + + | Marital Status | | + + + | Oriental Orthodox Affiliation | Unknown | + + + | Race | Unknown | + + + | Ethnic Group | Unknown | + + + Author + + + | Author | [facility] | | | and [place] | + + + | Organization | [facility] | | | and [place] [...] Team Providers + +------+ + | Care Drapery Counselor Name | Role | Phone | + +------+ + | No, Physician | PCP | Unavailable | + +------+ + Encounter Details +--------+ + + + + | Date | Type | Department | Care Team | Description | +--------+ + + + + | 01/30/ | Orders Only | [facility] | Nick, Omar Roberts, | Effusion, pleurisy, | | 2018 | | LABORATORY SERVICE | [address] | pneumococcal | | | | CENTER [address] | [place] | (Primary Dx) | | | | [place] | [address] | | | | | [address] | | | | | | [phone] | | | +--------+ + + + [...] as of this encounter Plan of Treatment + +------+--------+ + + | Name | Type | Priori | Associated Diagnoses | Order Schedule | | | | ty | | | + +------+--------+ + + | Protime INR | Lab | Routin | Effusion, | 1 Occurrences | | | | e | pleurisy, | starting 01/30/2018 | | | | | pneumococcal | until 01/30/2019 | + +------+--------+ + + | PTT | Lab | Routin | Effusion, | 1 Occurrences | | | | e | pleurisy, | starting 01/30/2018 | | | | | pneumococcal | until 01/30/2019 | + +------+--------+ + + documented as of this encounter Visit Diagnoses + + | Diagnosis | + + | Effusion, pleurisy, pneumococcal - Primary Pleurisy with effusion, with mention of | | bacterial cause other than tuberculosis | + + documented in this encounter"
--- OUTSIDE RECORDS SUMMARY | ~2020-04-21 | XMS | Encounter Summary ---
Demographics + + + | Address | [address] | | | [place] [address] | + + + | Home Phone | | + + + | Preferred Language | Unknown | + + + | Marital Status | | + + + | Advent Affiliation | Unknown | + + + | Race | Unknown | + + + | Ethnic Group | Unknown | + + + Author + + + | Author | [facility] | | | and [place]re[place] | + + + | Organization | [facility] | | | and [place]re[place] [...] Team Providers + +------+ + | Care Packing And Wrapping Supervisor Name | Role | Phone | + [...] | | | [address] | [place] [address] | | | | | [place] [address] | | | | | | [phone] | | | +--------+ + + + [...] | + +--------+ + + + | CT CHEST ABDOMEN W | Routin | 01/20/2018 | | Results for this | | CONTRAST | e | 1:30 PM | | procedure are in the | | | | PDT | | results section. | + +--------+ + + + documented in this encounter Results CT Chest Abdomen w Contrast (01/20/2018 1:30 PM PDT) + + | Specimen | + + | | + + + + + | Narrative | Performed At | + + + | External films for comparison only - no result from [place]. | [facility] | + + + + +---------+ + + | Performing | Address | City/State/Zipcode | Phone Number | | Organization | | | | + +---------+ + + | [facility] | | | | + +---------+ + + documented in this encounter Visit Diagnoses Not on filedocumented in this encounter"
--- OUTSIDE RECORDS SUMMARY | ~2020-04-21 | XMS | Encounter Summary ---
Demographics + + + | Address | [address] | | | [place] [address] | + + + | Home Phone | | + + + | Preferred Language | Unknown | + + + | Marital Status | | + + + | Hindu Affiliation | Unknown | + + + | Race | Unknown | + + + | Ethnic Group | Unknown | + + + Author + + + | Author | [facility] | | | and [place] | + + + | Organization | [facility] | | | and [...] Team Providers + +------+ + | Care Contract Coordinator Name | Role | Phone | + +------+ + | No, Physician | PCP | Unavailable | + +------+ + Encounter Details +--------+ + + + + | Date | Type | Department | Care Team | Description | +--------+ + + + + | 01/23/ | Imaging | [facility] | Provider, | Pneumonia of both | | 2018 | Exam | [facility] | [address] | upper lobes due to | | | | IMAGING [address] | [address] | Pneumocystis | | | | [address] [facility] | [place] [address] | jirovecii (HCC) | | | | [place] [address] | | (Primary Dx) | | | | [phone] | | | +--------+ + + + [...] | + +--------+ + + + | PTT | Routin | 01/23/2018 | Pneumonia of both | Results for this | | | e | 1:53 PM | upper lobes due to | procedure are in the | | | | PDT | Pneumocystis | results section. | | | | | jirovecii (HCC) | | + +--------+ + + + | PROTIME INR | STAT | 01/23/2018 | Pneumonia of both | Results for this | | | | 1:53 PM | upper lobes due to | procedure are in the | | | | PDT | Pneumocystis | results section. | | | | | jirovecii (HCC) | | + +--------+ + + + | XR CHEST 2 VIEWS | Routin | 01/23/2018 | | Results for this | | | e | 8:40 AM | | procedure are in the [...] (H) | 22 - 36 seconds | [facility] | | | | | | ST. [...] + | [facility] | [address] | [place] | [phone] | | [facility] | | [address] | | | - LABORATORY | | | | + + + + + Extra Lavender Top Tube (01/23/2018 1:53 PM PDT) + +-------+ + + + | Component | Value | Ref Range | Performed | Pathologist | | | | | At | Signature | + +-------+ + + + | Extra | Done | | [facility] | | | Lavender | | | [facility] | | [...] ST. | [address] | [place] | [phone] | | [facility] | | [address] | | | - LABORATORY | | [...] | Top Tube | | | [facility] | | | | | | MEDICAL [...] + + | [facility] | [address] | [place] | [phone] | | [facility] | | [address] | | | - LABORATORY | | [...] + | [facility] | [address] | [place] | [phone] | | [facility] | | [address] | | | - LABORATORY | | | | + + + + + Protime INR (01/23/2018 1:53 PM PDT) + + + + + + | Component | Value | Ref Range | Performed | Pathologist | | | | | At | Signature | + + + + + + | Prothrombin | 13.2 | 11.3 - 13.9 | [facility] | | | Time | | seconds | [facility] | | | | | | MEDICAL | | | | | | CENTER - | | | | | | LABORATORY | | + + + + + + | INR | 1.01Comment: Usual Oral | 0.90 - 1.10 | [facility] | | | | Anticoagulation Range: | | [facility] | | | | 2.0 - 3.0High | | MEDICAL | | | | Level Oral | | CENTER - | | | | Anticoagulation Range: | | LABORATORY | | | | 2.5 - 3.5 | | | | + + + + + + + + | Specimen | + + | Blood | + + + + + + + | Performing | Address | City/State/Zipcode | Phone Number | | Organization | | | | + + + + + | [facility] | [address] | [place] | [phone] | | [facility] | | [address] | | | - LABORATORY | | | | + + + + + XR Chest 2 Vws (01/23/2018 8:40 AM PDT) + + | Specimen | + + | | + + + + + | Narrative | Performed At | + + + | External films for comparison only - no result from [place]. 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
--- OUTSIDE RECORDS SUMMARY | ~2020-04-21 | XMS | Encounter Summary ---
Demographics + + + | Address | [address] | | | [place] [address] | + + + | Home Phone | | + + + | Preferred Language | Unknown | + + + | Marital Status | | + + + | Scientology Affiliation | Unknown | + + + | Race | Unknown | + + + | Ethnic Group | Unknown | + + + Author + + + | Author | [facility] | | | and [place] | + + + | Organization | [facility] | | | [...] Team Providers + +------+ + | Care Upholsterer Apprentice Name | Role | Phone | + [...] | | | [address] | [place] [address] | | | | | [place] [address] | | | | | | [phone] | | | +--------+ + + + [...] + +--------+ + + + | XR WRIST RIGHT 3 + | Routin | 01/15/2016 | | Results for this | | VW | e | 12:00 AM | | procedure are in the | | | | PDT | | results section. | + +--------+ + + + documented in this encounter Results XR Wrist Right 3 + Vw (01/15/2016 12:00 AM PDT) + + | Specimen | [...]
[~2020-04-21 11:37] MED LIST changes: +AMOX TR-K CLV1 EAC1 PO; +IBUPROFEN200 MG PO; +OXYCODONE HCL5 MG PO; +PHARBETOL325 MG PO
== END 2020-04-21 14:30 | disposition home or self-care (01) ==
LOC: ED 11:37
DX: K59.00 Constipation, unspecified (principal); I10 Essential (primary) hypertension; G43.909 Migraine, unspecified, not intractable, without status migrainosus; F41.9 Anxiety disorder, unspecified; F17.200 Nicotine dependence, unspecified, uncomplicated; Z79.899 Other long term (current) drug therapy
CPT/HCPCS: 74177; 80053; 81001; 83690; 85025; 96374; 96375; 99284-25; J1885; J2405; J7030; Q9967